=== PATIENT | male | born 1950 | race Caucasian/White ===

== ENCOUNTER 2017-03-10 06:33 | Inpatient (IN) | payer BC, MEDICARE ==
[~2017-03-10] VITALS: Ht 185.4 cm; Wt 116.4 kg
[2017-03-10] MEDS ORDERED: FAMOTIDINE 20MG/2ML IV (PEPCID) IV STA (06:47)
[2017-03-10] MEDS ORDERED: NS IV 1000 ML 1,000 ML IV STA (06:47)
[2017-03-10] MEDS ORDERED: fentaNYL INJECTION 100 MCG/2 ML AMP IVP STA ×2 (06:47→09:13)
--- NOTE | 2017-03-10 06:51 | ED Abdominal Pain ---
General Chief Complaint: Abdominal/GI Problems Stated Complaint: UPPER ABD PAIN Source of Information: Patient Exam Limitations: No Limitations History of Present Illness Time Seen By Provider: 06:39 Initial Comments Here with report of upper abdominal pain that started at about 1 a.m. and was associated with nausea and vomiting. Reports vomiting at least 5 times. Did have one normal bowel movement this morning. Does have history of constipation problems and takes some medicine for that yesterday. Denies blood in his stool or vomit. Denies fever or chills. Timing/Duration: 4-6 Hours Severity/Quality: Moderate, Aching, Cramping Location: Epigastric Radiation: No Radiation Activities at Onset: None Modifying Factors: Improves With Vomiting Associated Symptoms: No Back Pain, No Chest Pain, No Fever/Chills, Nausea/ Vomiting, No Shortness of Air, No Weakness Allergies and Home Medications Allergies Coded Allergies: No Known Drug Allergies (Unverified , 07/19/12) Review of Systems Constitutional: see HPI, No chills, No fever EENTM: No Symptoms Reported Respiratory: No Symptoms Reported Cardiovascular: No Symptoms Reported Gastrointestinal: See HPI, Abdominal Pain, Constipated, Denies Diarrhea, Nausea , Vomiting Genitourinary: No Symptoms Reported Musculoskeletal: no symptoms reported Skin: no symptoms reported Psychiatric/Neurological: No Symptoms Reported All Other Systems Reviewed Negative Unless Noted: Yes Past Lksioqp-Eeqkoz-Xjbpam Hx Patient Social History Alcohol Use: Denies Use Recreational Drug Use: No Smoking Status: Never a Smoker Recent Foreign Travel: No Contact w/Someone Who Travel: No Recent Hopitalizations: No Immunizations Up To Date Date of Pneumonia Vaccine: Apr 16, 2009 Date of Influenza Vaccine: Jun 16, 2012 Surgeries HX Surgeries: Yes Surgeries: Adenoidectomy, Tonsillectomy Respiratory Hx Respiratory Disorders: No Cardiovascular Hx Cardiac Disorders: No Genitourinary Hx Genitourinary Disorders: Yes Genitourinary Disorders: Kidney Stones Gastrointestinal Hx Gastrointestinal Disorders: No Musculoskeletal Hx Musculoskeletal Disorders: No Endocrine Hx Endocrine Disorders: No Reviewed Nursing Assessment Reviewed/Agree w Nursing PMH: Yes Family Medical History Significant Family History: No Pertinent Family Hx Physical Exam Vital Signs VS - Last 72 Hours, by Label 03/10/17 03/10/17 06:40 09:30 Temp 97.7 97.7 Pulse 52 Resp 18 B/P (MAP) 166/83 Pulse Ox 97 O2 Delivery Room Air Capillary Refill : General Appearance: WD/WN, no apparent distress HEENT: PERRL/EOMI, pharynx normal Neck: full range of motion, supple Respiratory: lungs clear, normal breath sounds Cardiovascular: regular rate, rhythm, no murmur Peripheral Pulses: 2+ Dorsalis Pedis (R), 2+ Left Dors-Pedis (L), 2+ Radial Pulses (R), 2+ Radial Pulses (L) Gastrointestinal: non tender, soft Extremities: non-tender, normal inspection Back: normal inspection, no CVA tenderness, no vertebral tenderness Neurologic/Psychiatric: alert, oriented x 3 Skin: normal color, warm/dry Progress/Results/Core Measures Results/Orders Lab Results Laboratory Tests Test 03/10/17 06:45 03/10/17 07:03 Range/Units White Blood Count 12.4 H 4.3-11.0 10^3/uL Red Blood Count 4.99 4.35-5.85 10^6/uL Hemoglobin 15.6 13.3-17.7 G/DL Hematocrit 44 40-54 % Mean Corpuscular Volume 88 80-99 FL Mean Corpuscular Hemoglobin 31 25-34 PG Mean Corpuscular Hemoglobin Concent 36 32-36 G/DL Red Cell Distribution Width 12.7 10.0-14.5 % Platelet Count 244 130-400 10^3/uL Mean Platelet Volume 9.9 7.4-10.4 FL Neutrophils (%) (Auto) 80 H 42-75 % Lymphocytes (%) (Auto) 11 L 12-44 % Monocytes (%) (Auto) 8 0-12 % Eosinophils (%) (Auto) 1 0-10 % Basophils (%) (Auto) 0 0-10 % Neutrophils # (Auto) 10.0 H 1.8-7.8 X 10^3 Lymphocytes # (Auto) 1.3 1.0-4.0 X 10^3 Monocytes # (Auto) 1.0 0.0-1.0 X 10^3 Eosinophils # (Auto) 0.2 0.0-0.3 10^3/uL Basophils # (Auto) 0.0 0.0-0.1 10^3/uL Sodium Level 133 L 135-145 MMOL/L Potassium Level 4.4 3.6-5.0 MMOL/L Chloride Level 102 98-107 MMOL/L Carbon Dioxide Level 21 21-32 MMOL/L Anion Gap 10 5-14 MMOL/L Blood Urea Nitrogen 9 7-18 MG/DL Creatinine 0.94 0.60-1.30 MG/DL Estimat Glomerular Filtration Rate > 60 BUN/Creatinine Ratio 10 Glucose Level 125 H 70-105 MG/DL Calcium Level 9.6 8.5-10.1 MG/DL Magnesium Level 2.0 1.8-2.4 MG/DL Total Bilirubin 1.8 H 0.1-1.0 MG/DL Aspartate Amino Transf (AST/SGOT) 23 5-34 U/L Alanine Aminotransferase (ALT/SGPT) 25 0-55 U/L Alkaline Phosphatase 70 40-136 U/L Total Protein 6.9 6.4-8.2 GM/DL Albumin 4.2 3.2-4.5 GM/DL Amylase Level 41 25-125 U/L Lipase 20 8-78 U/L Urine Color YELLOW Urine Clarity CLEAR Urine pH 7 5-9 Urine Specific [place] 1.010 L 1.016-1.022 Urine Protein NEGATIVE NEGATIVE Urine Glucose (UA) NEGATIVE NEGATIVE Urine Ketones NEGATIVE NEGATIVE Urine Nitrite NEGATIVE NEGATIVE Urine Bilirubin NEGATIVE NEGATIVE Urine Urobilinogen NORMAL NORMAL MG/DL Urine Leukocyte Esterase NEGATIVE NEGATIVE Urine RBC (Auto) 1+ H NEGATIVE Urine RBC NONE /HPF Urine WBC NONE /HPF Urine Squamous Epithelial Cells RARE /HPF Urine Crystals NONE /LPF Urine Bacteria NEGATIVE /HPF Urine Casts NONE /LPF Urine Mucus NEGATIVE /LPF Urine Culture Indicated NO My Orders Orders - KALYANI CORNELL MD Amylase (03/10/17 06:47) Cbc With Automated Diff (03/10/17 06:47) Comprehensive Metabolic Panel (03/10/17 06:47) Lipase (03/10/17 06:47) Magnesium (03/10/17 06:47) Ua Culture If Indicated (03/10/17 06:47) Fentanyl Injection (Sublimaze Injection (03/10/17 06:47) Ondansetron Injection (Zofran Injectio (03/10/17 07:00) Ns Iv 1000 Ml (Sodium Chloride 0.9%) (03/10/17 06:47) Famotidine Injection (Pepcid Injection) (03/10/17 06:47) Saline Lock/Iv-Start (03/10/17 06:47) Us Gallbladder [id number] (03/10/17 07:12) Ct Abdomen/Pelvis W (03/10/17 07:47) Iohexol Injection (Omnipaque 350 Mg/Ml 1 (03/10/17 08:00) Ns (Ivpb) (Sodium Chloride 0.9% Ivpb Bag (03/10/17 08:00) Ondansetron Injection (Zofran Injectio (03/10/17 08:45) Ng Tube Insert & Assessment (03/10/17 09:13) Fentanyl Injection (Sublimaze Injection (03/10/17 09:13) Medications Given in ED Current Medications Medications Dose Ordered Sig/Maikol Route Start Time Stop Time Status Last Admin Dose Admin Iohexol 100 ml ONCE ONCE IV 03/10/17 08:00 03/10/17 08:06 DC 03/10/17 08:10 100 ML Ondansetron HCl 4 mg ONCE ONCE IVP 03/10/17 07:00 03/10/17 07:01 DC 03/10/17 06:56 4 MG Ondansetron HCl 4 mg ONCE ONCE IVP 03/10/17 08:45 03/10/17 08:46 DC 03/10/17 08:34 4 MG Sodium Chloride 80 ml ONCE ONCE IV 03/10/17 08:00 03/10/17 08:06 DC 03/10/17 08:10 80 ML Vital Signs/I&O Vital Sign - Last 12Hours 03/10/17 03/10/17 06:40 09:30 Temp 97.7 97.7 Pulse 52 Resp 18 B/P (MAP) 166/83 Pulse Ox 97 O2 Delivery Room Air Progress Note : Progress Note Seen and evaluated. IV, labs, UA, normal saline 1 L bolus, Zofran 4 mg IV, fentanyl 50 g IV and Pepcid 20 mg IV ordered. Monitor patient. Ultrasound ordered and completed and does not show any significant findings. CT abdomen pelvis ordered as patient is having persistent pain and nausea. Repeat Zofran [address] shows findings concerning for small bowel obstruction. I did discuss the case with Dr. Iverson at 0916. He accepts patient for admission, inpatient status. Consult Dr. Mendez. This was done at 0918. NG tube ordered due to persistent nausea and vomiting. All findings and concerns discussed with patient and family who agree with plan. Diagnostic Imaging Diagonstic Imaging: Ultrasound Plain Films/CT/US/NM/MRI: abdomen Comments [place], [place] NAME: ERIC GOINS [facility] REC#: [id number] PT STATUS: REG ER : 1950 PHYSICIAN: KALYANI CORNELL MD ADMIT DATE: 03/10/17/ER Draft Date of Exam:03/10/17 US GALLBLADDER [id number] PROCEDURE: US Gallbladder. TECHNIQUE: Multiple real-time grayscale images were obtained over the right upper quadrant in various projections. INDICATION: Abdominal pain. Liver parenchyma appears normal. There is a small cyst noted in the midportion of the right lobe measuring approximately 1.8 cm. Bile ducts are not dilated. Common duct is obscured due to bowel gas. The gallbladder appears normal. Gallbladder wall is not thickened. There are no gallstones or pericholecystic edema. The pancreas is not visualized. The right kidney appears normal. There is no ascites. IMPRESSION: 1. Benign-appearing cyst in the right lobe of the liver. 2. Gallbladder and bile ducts appear normal. Dictated on workstation # [id number] Dict: 03/10/17 0759 Trans: 03/10/17 0802 JOSE ANTONIO [id number] Interpreted by: VALDEMAR LITTLE MD Electronically signed by: Reviewed: Reviewed by Me Diagonstic Imaging: CT Plain Films/CT/US/NM/MRI: abdomen, pelvis Comments [place] NAME: ERIC GOINS [facility] REC#: [id number] PT STATUS: REG ER : 1950 PHYSICIAN: KALYANI CORNELL MD ADMIT DATE: 03/10/17/ER Draft Date of Exam:03/10/17 CT ABDOMEN/PELVIS W INDICATION: Epigastric pain, nausea and vomiting CT of the abdomen and pelvis obtained with IV contrast bolus. Visualized portions of the lung bases are clear. There were no pleural fluid collections. There is no free intraperitoneal air. The liver shows a cluster of cysts in the medial segment of the left lobe as well as a smaller cyst in the right lobe. Gallbladder is unremarkable. The spleen, adrenals, and pancreas are normal. Kidneys bilaterally are unremarkable. There is no retroperitoneal mass or adenopathy. Is a trace of free fluid around the liver. There is diffuse dilatation of small bowel loops compatible with small bowel obstruction. There is decompression of distal small bowel. The exact zone of transition is difficult to determine. There is some edema in the mesentery. The colon is decompressed. The appendix appears normal. IMPRESSION: Findings compatible with small bowel obstruction. There is some edema in the mesentery. There is no abscess or abnormal fluid collection. There are multiple hepatic cysts. There is a trace of free fluid around the liver. Dictated on workstation # [id number] Dict: 03/10/17 0834 Trans: 03/10/17 0853 [facility] [id number] Interpreted by: HERVE DAVIS MD Electronically signed by: Reviewed: Reviewed by Me Departure Communication Time/Spoke to Admitting Phy: 09:16 Time/Spoke to Consulting Physi: 09:18 Impression Impression: Primary Impression: Small bowel obstruction Disposition: ADMITTED INPATIENT Condition: Stable Decision to Admit Reason: Admit from ER (General) Decision to Admit/Date: Mar 10, 2017 Time/Decision to Admit Time: 09:16 Departure-Patient Inst. Referrals: ADI IVERSON MD (PCP/Family) Primary Care Physician KALYANI CORNELL MD Mar 10, 2017 06:51
[2017-03-10 06:52] LABS: BASOPHILS % (AUTO) 0 % (0-10); EOSINOPHILS # (AUTO) 0.2 10^3/uL (0.0-0.3); EOSINOPHILS % (AUTO) 1 % (0-10); LYMPHOCYTES # (AUTO) 1.3 X 10^3 (1.0-4.0); LYMPHOCYTES % (AUTO) 11 % (12-44); MEAN CORPUSCULAR HEMOGLOBIN 31 PG (25-34); MEAN CORPUSCULAR HGB CONC 36 G/DL (32-36); MEAN CORPUSCULAR VOLUME 88 FL (80-99); MEAN PLATELET VOLUME 9.9 FL (7.4-10.4); MONOCYTES % (AUTO) 8 % (0-12); NEUTROPHILS % (AUTO) 80 % (42-75); PLATELET COUNT 244 10^3/uL (130-400); RED BLOOD COUNT 4.99 10^6/uL (4.35-5.85); RED CELL DISTRIBUTION WIDTH 12.7 % (10.0-14.5); WHITE BLOOD COUNT 12.4 10^3/uL (4.3-11.0)
[2017-03-10] MEDS ORDERED: ONDANSETRON 4 MG/2 ML (SDV) Z0FRAN IVP ONE ×2 (07:00→08:45)
[2017-03-10 07:11] LABS: ALANINE AMINOTRANSFERASE 25 U/L (0-55); ALBUMIN 4.2 GM/DL (3.2-4.5); AMYLASE 41 U/L (25-125); ANION GAP 10 MMOL/L (5-14); ASPARTATE AMINO TRANSFERASE 23 U/L (5-34); BILIRUBIN,TOTAL 1.8 MG/DL (0.1-1.0); BLOOD UREA NITROGEN 9 MG/DL (7-18); BUN/CREATININE RATIO 10; CALCIUM 9.6 MG/DL (8.5-10.1); CARBON DIOXIDE 21 MMOL/L (21-32); CHLORIDE 102 MMOL/L (98-107); CREATININE SERUM 0.94 MG/DL (0.60-1.30); GFR ESTIMATED > 60; GLUCOSE 125 MG/DL (70-105); LIPASE 20 U/L (8-78); POTASSIUM 4.4 MMOL/L (3.6-5.0); SODIUM 133 MMOL/L (135-145); TOTAL PROTEIN 6.9 GM/DL (6.4-8.2)
[2017-03-10 07:13] LABS: BILIRUBIN,URINE NEGATIVE (NEGATIVE); KETONES,URINE NEGATIVE (NEGATIVE); LEUKOCYTE ESTERASE ,URINE NEGATIVE (NEGATIVE); NITRITE,URINE NEGATIVE (NEGATIVE); PH,URINE 7 (5-9); PROTEIN,URINE NEGATIVE (NEGATIVE); UROBILINOGEN,URINE NORMAL (NORMAL)
[2017-03-10 07:27] LABS: SQUAMOUS EPITHELIAL CELL,UR RARE /HPF
[2017-03-10] MEDS ORDERED: IOHEXOL 350 MG/ML 100 ML (OMNIPAQUE 350) VIAL IV ONE (08:00)
[2017-03-10] MEDS ORDERED: NS 100 ML (IVPB) BAG IV ONE (08:00)
--- NOTE | 2017-03-10 08:03 | Diagnostic Imaging Report ---
PROCEDURE: US Gallbladder. TECHNIQUE: Multiple real-time grayscale images were obtained over the right upper quadrant in various projections. INDICATION: Abdominal pain. Liver parenchyma appears normal. There is a small cyst noted in the midportion of the right lobe measuring approximately 1.8 cm. Bile ducts are not dilated. Common duct is obscured due to bowel gas. The gallbladder appears normal. Gallbladder wall is not thickened. There are no gallstones or pericholecystic edema. The pancreas is not visualized. The right kidney appears normal. There is no ascites. IMPRESSION: 1. Benign-appearing cyst in the right lobe of the liver. 2. Gallbladder and bile ducts appear normal. Dictated by: Dictated on workstation # [id number]
--- NOTE | 2017-03-10 08:54 | Diagnostic Imaging Report ---
INDICATION: Epigastric pain, nausea and vomiting CT of the abdomen and pelvis obtained with IV contrast bolus. Visualized portions of the lung bases are clear. There were no pleural fluid collections. There is no free intraperitoneal air. The liver shows a cluster of cysts in the medial segment of the left lobe as well as a smaller cyst in the right lobe. Gallbladder is unremarkable. The spleen, adrenals, and pancreas are normal. Kidneys bilaterally are unremarkable. There is no retroperitoneal mass or adenopathy. Is a trace of free fluid around the liver. There is diffuse dilatation of small bowel loops compatible with small bowel obstruction. There is decompression of distal small bowel. The exact zone of transition is difficult to determine. There is some edema in the mesentery. The colon is decompressed. The appendix appears normal. IMPRESSION: Findings compatible with small bowel obstruction. There is some edema in the mesentery. There is no abscess or abnormal fluid collection. There are multiple hepatic cysts. There is a trace of free fluid around the liver. Dictated by: Dictated on workstation # [id number]
[2017-03-10] MEDS ORDERED: CATHETER FLUSH 10 ML SYR IV PRN (11:30)
[2017-03-10] MEDS ORDERED: fentaNYL INJECTION 100 MCG/2 ML AMP IV PRN (11:30)
[2017-03-10 12:00] VITALS: BP 164/74
[2017-03-10] MEDS: NS IV 1000 ML 1,000 ML IV SCH ×2 (12:20→21:55)
--- NOTE | 2017-03-10 13:15 | CONSULTATION REPORT ---
DATE OF ADMISSION: 03/10/2017 DATE OF CONSULTATION 03/10/2017: ATTENDING PRIMARY CARE PHYSICIAN: Dr. Iverson. Mr. Steve Dye is a 66-year-old male who states that he developed upper abdominal pain early this morning, which was associated with nausea and vomiting. He states that he did have a bowel movement this morning as well. He does have a history of constipation and had had some issues with this before. He does not report any hematemesis or coffee-ground emesis. He also does not report any red blood per rectum or any dark tarry stools. He also does not report having these type of symptoms before in the past as well. An ultrasound was performed, which did not show any gallstones. He also had a CT scan, which did show dilated loop of small bowel, as well as some mild thickening of a segment of small bowel consistent with an ileus versus a partial small bowel obstruction. PAST MEDICAL HISTORY: Nephrolithiasis. PAST SURGERIES: Tonsillectomy. ALLERGIES: No known drug allergies. MEDICATIONS: None. SOCIAL HISTORY: Negative smoke. Negative alcohol. VITAL SIGNS: Temperature 97.7, blood pressure 166/83, pulse 52, respirations 18, pulse oximetry 97% on room air. REVIEW OF SYSTEMS: Well-nourished male, currently in no acute distress. He is not experiencing any shortness of breath or difficulty breathing. No chest pain, palpitations, diaphoresis. Abdominal distention, as well as of crampy upper abdominal pain with several episodes of nausea, vomiting, no hematemesis, no coffee-ground emesis. He have a bowel movement this morning. No red blood per rectum. No dark tarry stools. No fever, chills, no recent inadvertent weight loss. All other review of systems negative. PHYSICAL EXAMINATION: CHEST: Clear, good breath sounds bilaterally. HEART: Regular. No murmurs. EXTREMITIES: No lower extremity edema. Negative Homans sign. HEENT: No scleral icterus. No cervical lymphadenopathy. ABDOMEN: Slightly distended with no hernias identified. There is also mild discomfort upon palpation. No peritoneal signs. SKIN: Warm and dry. LABS: WBC 12.4, hemoglobin 15.6, hematocrit 44, platelets 244, total bilirubin 1.8, AST 23, ALT 25, alkaline phosphatase 70. ASSESSMENT AND PLAN: 66-year-old male with nausea and vomiting as well as upper abdominal pain. There was mild amount of edema noted on the small bowel as well as dilated loops of small bowel, which may indicate ileus versus a partial small bowel obstruction secondary to nonspecific inflammation due to bacterial overgrowth. We will continue with conservative management with IV hydration, antibiotics, as well as bowel rest. Job ID: [id number] Dictated Date: 03/10/2017 10:43:40 Director Of Human Resources Date: 03/10/2017 13:07:04/jeovany
[2017-03-10] MEDS ORDERED: DOXY100T2 PO (13:17)
[2017-03-10] MEDS ORDERED: TADA5TAB2 PO (13:17)
[2017-03-10] MEDS ORDERED: BENA20TA2 PO (13:17)
[2017-03-10] MEDS ORDERED: BUPR150T7 PO (13:17)
[2017-03-10] MEDS ORDERED: DOCU100C37 PO (13:17)
[2017-03-10] MEDS: LEVOFLOXACIN 500 MG/100 ML IV 100 ML IV SCH (13:46)
[2017-03-10 15:41] VITALS: BP 167/83
--- NOTE | 2017-03-10 17:03 | History & Physical-Hospitalist ---
HPI History of Present Illness: HPI/Chief Complaint Mr. Dye is a 66-year-old white male who awoke from sleep around 130 a.m. this morning with epigastric abdominal pain. It was followed by nausea and vomiting. He denied coffee-ground emesis or bright red blood. Intractable vomiting persisted causing his present to the emergency room. He denied chills or fever. He reports he is prone to constipation but had a stool was not hard this morning. He has no significant past surgical history and has no past history of bowel obstruction. He underwent abdominal sonography that was unremarkable in the emergency room. This was followed by a CT scan of the abdomen and pelvis which revealed findings concerning for underlying small bowel obstruction. Patient states that he had overdone it moving 2 daughters in the heat over the weekend. He reports he had been feeling well until waking up this morning however and had no abdominal symptoms yesterday. He denies chills fever or night sweats. Date Seen 03/10/17 Time Seen by Provider: 16:00 Attending Physician Adi Summers MD PCP Adi Summers MD Referring Physician Date of Admission Mar 10, 2017 at 09:22 Home Medications & Allergies Home Medications Reviewed patient Home Medication Reconciliation Form Allergies Allergies Coded Allergies No Known Drug Allergies ([id number]/4/12) Past Hdoqpax-Zqxiav-Yqsslu Hx Patient Social History Alcohol Use: Denies Use Recreational Drug Use: No Smoking Status: Never a Smoker Physical Abuse Screen: No Sexual Abuse: No Recent Foreign Travel: No Contact w/other who traveled: No Recent Hopitalizations: No Recent Infectious Disease Expo: No Immunizations Up To Date Date of Pneumonia Vaccine: Apr 16, 2009 Date of Influenza Vaccine: Jun 16, 2012 Seasonal Allergies Seasonal Allergies: No Surgeries HX Surgeries: Yes Surgeries: Adenoidectomy, Tonsillectomy Respiratory Hx Respiratory Disorders: No Cardiovascular Hx Cardiovascular Disorders: No Genitourinary Hx Genitourinary Disorders: Yes Genitourinary Disorders: Kidney Stones Gastrointestinal Hx Gastrointestinal Disorders: No Musculoskeletal Hx Musculoskeletal Disorders: No Endocrine Hx Endocrine Disorders: No Reviewed Nursing Assessment Reviewed/Agree w Nursing PMH: Yes Family Medical History Significant Family History: No Pertinent Family Hx Review of Systems Constitutional: No chills, No diaphoresis, No dizziness, No fever, No malaise, No weakness, No weight gain, No weight loss Respiratory: no symptoms reported, see HPI Cardiovascular: no symptoms reported, see HPI Gastrointestinal: see HPI Physical Exam Physical Exam Vital Signs Vital Sign - Last 12Hours 03/10/17 06:40 Temp 97.7 Pulse 52 Resp 18 B/P (MAP) 166/83 Pulse Ox 97 O2 Delivery Room Air Capillary Refill : Less Than 3 Seconds General Appearance: Mild Distress Neck: Full Range of Motion, Normal Inspection Respiratory: Chest Non Tender, Lungs Clear, Normal Breath Sounds, No Accessory Muscle Use, No Respiratory Distress Cardiovascular: Regular Rate, Rhythm, No Edema, No Gallop, No JVD, No Murmur, Normal Peripheral Pulses Gastrointestinal: Other (Mild epigastric andUmbilical discomfort to palpation. Bowel sounds are absent no mass or organomegaly is appreciated. Mild abdominal distention) Extremity: Normal Capillary Refill, Normal Inspection, Normal Range of Motion, Non Tender, No Calf Tenderness, No Pedal Edema Skin: Normal Color, Damp Results Results/Procedures Lab Laboratory Tests 03/10/17 06:45 Assessment/Plan Admission Diagnosis 1. Ileus with or without ischemia aggravated by dehydration versus caruncle small bowel obstruction. We'll continue NG tube decompression and monitoring. Antibiotics have been initiated as well. Dr. VALLADARES's help greatly appreciated. 2. History of hypertension we'll be holding oral antihypertensive medication. Clinical Quality Measures DVT/VTE Risk/Contraindication: Risk Factor Score Per Nursin RFS Level Per Nursing on Admit: 2=Moderate ADI SUMMERS MD Mar 10, 2017 17:03
[2017-03-10 19:07] VITALS: BP 169/78
[2017-03-10] MEDS: ACETAMINOPHEN 325 MG TABLET/CAPLET (TYLENOL) PO PRN (19:59)
[2017-03-11] VITALS: BP 175/77
[2017-03-11 04:22] VITALS: BP 176/78
[2017-03-11] MEDS: NS IV 1000 ML 1,000 ML IV SCH (05:39)
--- NOTE | 2017-03-11 07:19 | Progress Note-Hospitalist ---
Subjective HPI/CC On Admission Date Seen by Provider: Mar 11, 2017 Time Seen by Provider: 07:00 Mr. Dye is a 66-year-old white male who awoke from sleep around 130 a.m. this morning with epigastric abdominal pain. It was followed by nausea and vomiting. He denied coffee-ground emesis or bright red blood. Intractable vomiting persisted causing his present to the emergency room. He denied chills or fever. He reports he is prone to constipation but had a stool was not hard this morning. He has no significant past surgical history and has no past history of bowel obstruction. He underwent abdominal sonography that was unremarkable in the emergency room. This was followed by a CT scan of the abdomen and pelvis which revealed findings concerning for underlying small bowel obstruction. Patient states that he had overdone it moving 2 daughters in the heat over the weekend. He reports he had been feeling well until waking up this morning however and had no abdominal symptoms yesterday. He denies chills fever or night sweats. Subjective/Events-last exam This Morning patient's noting a little more epigastric discomfort without nausea or vomiting. He denied chills or feeling feverish but did have some sweating last night. MAXIMUM TEMPERATURE 100.3 Objective Exam Vital Signs Vital Sign - Last 12Hours 03/10/17 06:40 Temp 97.7 Pulse 52 Resp 18 B/P (MAP) 166/83 Pulse Ox 97 O2 Delivery Room Air Capillary Refill : Less Than 3 Seconds General Appearance: No Apparent Distress, WD/WN Respiratory: Chest Non Tender, Lungs Clear, Normal Breath Sounds, No Accessory Muscle Use, No Respiratory Distress Cardiovascular: Regular Rate, Rhythm, No Edema, No Gallop, No JVD, No Murmur, Normal Peripheral Pulses Gastrointestinal: Other (I'll sounds are noted with no increase in mild abdominal distention. The abdomen is soft there is mild epigastric discomfort without rebound or guarding no masses or organomegaly appreciated.) Assessment/Plan Assessment and Plan Assess & Plan/Chief Complaint 1. Small bowel obstruction versus ileus ischemia with concerns for bacterial overgrowth and secondary infection necessitate continued broad-spectrum antibiotic coverage. The patient is only had roughly 200 mL of NG output over the last 18+ hours and does have bowel sounds's morning which are encouraging. Defer NG tube management Dr. VALLADARES no flatus or stool as of yet. ADI SUMMERS MD Mar 11, 2017 07:19
[2017-03-11 08:00] VITALS: BP 170/83
--- NOTE | 2017-03-11 08:33 | Diagnostic Imaging Report ---
INDICATION: Fever and small bowel obstruction. PA and lateral views of the chest are obtained. There is no previous study available at this time for comparison. FINDINGS: Heart size and pulmonary vascularity are within normal limits. There is no pneumothorax or consolidation. No significant pleural fluid is identified. There is extensive gaseous distention of small bowel seen in the upper abdomen with air-fluid levels indicating possible obstruction. IMPRESSION: Abnormal bowel gas pattern without acute abnormality seen in the chest. Nasogastric tube passes into the stomach with tip in the left upper quadrant. Dictated by: Dictated on workstation # [id number]
[2017-03-11 09:44] LABS: MEAN PLATELET VOLUME 10.1 FL (7.4-10.4); RED BLOOD COUNT 4.94 10^6/uL (4.35-5.85); RED CELL DISTRIBUTION WIDTH 12.8 % (10.0-14.5); WHITE BLOOD COUNT 16.1 10^3/uL (4.3-11.0)
[2017-03-11] MEDS: D5 NS 1000 ML IV SOLUTION 1,000 ML IV SCH ×3 (11:18→23:59)
[2017-03-11] MEDS: LEVOFLOXACIN 500 MG/100 ML IV 100 ML IV SCH (11:18)
[2017-03-11 12:00] VITALS: BP 179/78
--- NOTE | 2017-03-11 15:54 | Progress Note (SOAP) ---
Subjective Date Seen by Provider: Mar 11, 2017 Time Seen by Provider: 15:45 Subjective/Events-last exam doing ok. no BM or flatus yet. mild abd pain. Objective Exam Vital Signs Date Time Temp Pulse Resp B/P (MAP) Pulse Ox O2 Delivery O2 Flow Rate FiO2 03/11/17 12:00 98.6 60 20 179/78 98 Room Air 03/11/17 08:00 98.0 57 16 170/83 98 Room Air 03/11/17 04:22 99.5 56 18 176/78 99 Room Air 03/11/17 00:00 99.0 59 19 175/77 98 Room Air 03/10/17 20:50 99.0 03/10/17 19:59 100.3 03/10/17 19:07 100.3 57 19 169/78 97 Room Air I & O 03/11/17 07:00 Intake Total 2000 ml Output Total 900 ml Balance 1100 ml Capillary Refill : Less Than 3 Seconds General Appearance: No Apparent Distress HEENT: PERRL/EOMI Neck: Full Range of Motion Respiratory: Chest Non Tender, Lungs Clear, Normal Breath Sounds Cardiovascular: Regular Rate, Rhythm Gastrointestinal: normal bowel sounds, soft Extremity: Normal Capillary Refill Neurologic/Psychiatric: Alert, Oriented x3 Skin: Normal Color Lymphatic: No Adenopathy Results Lab Laboratory Tests 03/11/17 09:35: White Blood Count 16.1H, Red Blood Count 4.94, Hemoglobin 15.6, Hematocrit 44, Mean Corpuscular Volume 89, Mean Corpuscular Hemoglobin 32, Mean Corpuscular Hemoglobin Concent 36, Red Cell Distribution Width 12.8, Platelet Count 222, Mean Platelet Volume 10.1 Assessment/Plan Assessment/Plan Assess & Plan/Chief Complaint enteritis. continue bowel rest. add flagyl. await normalization WBC and bowel fxn then start clears. Clinical Quality Measures DVT/VTE Risk/Contraindication: Risk Factor Score Per Nursin RFS Level Per Nursing on Admit: 2=Moderate ISIDRO VALLADARES MD Mar 11, 2017 3:54 pm
[2017-03-11 16:19] VITALS: BP 181/86
[2017-03-11] MEDS: metroNIDAZOLE 500MG/100ML IVPB 100 ML IV SCH (16:31)
[2017-03-11] MEDS ORDERED: amLODIPine 5 MG (NORVASC) TAB PO NR (17:00)
[2017-03-11] MEDS ORDERED: DOCUSATE SODIUM 100 MG (COLACE) CAP PO PRN (17:00)
[2017-03-11] MEDS ORDERED: BENAZEPRIL 20 MG (LOTENSIN) TAB ONE (17:06)
[2017-03-11] MEDS: BENAZEPRIL 20 MG (LOTENSIN) TAB PO SCH (17:13)
[2017-03-11] MEDS: ACETAMINOPHEN 325 MG TABLET/CAPLET (TYLENOL) PO PRN (19:27)
[2017-03-11] MEDS: CIPROFLOXACIN IV 400MG/200ML 200 ML IV SCH (20:13)
[2017-03-11] MEDS: ONDANSETRON 4 MG/2 ML (SDV) Z0FRAN IV PRN (20:16)
[2017-03-11 20:20] VITALS: BP 186/92
[2017-03-12] VITALS: BP 183/74
[2017-03-12] MEDS ORDERED: hydrALAZINE (APRESOLINE) 25 MG TAB PO ONE (00:15)
[2017-03-12] MEDS: ONDANSETRON 4 MG/2 ML (SDV) Z0FRAN IV PRN (00:29)
[2017-03-12] MEDS: metroNIDAZOLE 500MG/100ML IVPB 100 ML IV SCH (04:07)
[2017-03-12 06:26] LABS: BASOPHILS % (AUTO) 0 % (0-10); EOSINOPHILS % (AUTO) 0 % (0-10); LYMPHOCYTES # (AUTO) 1.1 X 10^3 (1.0-4.0); LYMPHOCYTES % (AUTO) 6 % (12-44); MEAN CORPUSCULAR HEMOGLOBIN 31 PG (25-34); MEAN CORPUSCULAR HGB CONC 36 G/DL (32-36); MEAN CORPUSCULAR VOLUME 88 FL (80-99); MEAN PLATELET VOLUME 10.7 FL (7.4-10.4); MONOCYTES % (AUTO) 11 % (0-12); NEUTROPHILS # (AUTO) 15.5 X 10^3 (1.8-7.8); NEUTROPHILS % (AUTO) 83 % (42-75); PLATELET COUNT 240 10^3/uL (130-400); RED BLOOD COUNT 5.22 10^6/uL (4.35-5.85); RED CELL DISTRIBUTION WIDTH 12.8 % (10.0-14.5); WHITE BLOOD COUNT 18.6 10^3/uL (4.3-11.0)
[2017-03-12 06:43] LABS: ALANINE AMINOTRANSFERASE 25 U/L (0-55); ALBUMIN 3.8 GM/DL (3.2-4.5); ANION GAP 10 MMOL/L (5-14); ASPARTATE AMINO TRANSFERASE 39 U/L (5-34); BILIRUBIN,TOTAL 1.8 MG/DL (0.1-1.0); BLOOD UREA NITROGEN 11 MG/DL (7-18); BUN/CREATININE RATIO 14; CALCIUM 8.6 MG/DL (8.5-10.1); CARBON DIOXIDE 21 MMOL/L (21-32); CHLORIDE 102 MMOL/L (98-107); CREATININE SERUM 0.81 MG/DL (0.60-1.30); GFR ESTIMATED > 60; GLUCOSE 144 MG/DL (70-105); POTASSIUM 3.6 MMOL/L (3.6-5.0); SODIUM 133 MMOL/L (135-145); TOTAL PROTEIN 6.5 GM/DL (6.4-8.2)
[2017-03-12 07:25] VITALS: BP 169/82
[2017-03-12] MEDS: buPROPion SR 150 MG (WELLBUTRIN SR) TAB PO SCH (08:15)
[2017-03-12] MEDS: BENAZEPRIL 20 MG (LOTENSIN) TAB PO SCH (08:15)
[2017-03-12] MEDS: CIPROFLOXACIN IV 400MG/200ML 200 ML IV SCH (08:15)
[2017-03-12] MEDS: D5 NS 1000 ML IV SOLUTION 1,000 ML IV SCH (08:15)
[2017-03-12] MEDS: hydrALAZINE (APRESOLINE) 25 MG TAB PO SCH ×3 (08:16→21:35)
[2017-03-12] MEDS ORDERED: NON-FORMULARY MEDICATION 1 EA EA (Tadalafil (Cialis) 5 MG) PO SCH (09:00)
--- NOTE | 2017-03-12 13:00 | Progress Note-Hospitalist ---
Subjective HPI/CC On Admission Date Seen by Provider: Mar 12, 2017 Time Seen by Provider: 12:15 Mr. Dye is a 66-year-old white male who awoke from sleep around 130 a.m. this morning with epigastric abdominal pain. It was followed by nausea and vomiting. He denied coffee-ground emesis or bright red blood. Intractable vomiting persisted causing his present to the emergency room. He denied chills or fever. He reports he is prone to constipation but had a stool was not hard this morning. He has no significant past surgical history and has no past history of bowel obstruction. He underwent abdominal sonography that was unremarkable in the emergency room. This was followed by a CT scan of the abdomen and pelvis which revealed findings concerning for underlying small bowel obstruction. Patient states that he had overdone it moving 2 daughters in the heat over the weekend. He reports he had been feeling well until waking up this morning however and had no abdominal symptoms yesterday. He denies chills fever or night sweats. Subjective/Events-last exam Mr. Dye reports she's past small amount of gas but he still has significant distention. He had some nausea last night without vomiting. Reportedly his NG tube came out yesterday afternoon. His bowels have not moved. He denies chills or fever. MAXIMUM TEMPERATURE 100.5 Objective Exam Vital Signs Vital Sign - Last 12Hours 03/10/17 06:40 Temp 97.7 Pulse 52 Resp 18 B/P (MAP) 166/83 Pulse Ox 97 O2 Delivery Room Air Capillary Refill : Less Than 3 Seconds General Appearance: No Apparent Distress, WD/WN Respiratory: Chest Non Tender, Lungs Clear, Normal Breath Sounds, No Accessory Muscle Use, No Respiratory Distress Cardiovascular: Regular Rate, Rhythm, No Edema, No Gallop, No JVD, No Murmur, Normal Peripheral Pulses Gastrointestinal: No Organomegaly, No Pulsatile Mass, Non Tender, Soft ( relatively), Distended (unchanged from yesterday), Other (bowel sounds are positive.) Results/Procedures Lab Laboratory Tests 03/12/17 05:57 Assessment/Plan Assessment and Plan Assess & Plan/Chief Complaint 1. Small bowel obstruction versus ileus ischemia with concerns for bacterial overgrowth and secondary infection necessitate continued broad-spectrum antibiotic coverage. patient is scheduled for CT abdomen and pelvis later today. His white count was higher this morning and he still having low-grade temperature with no evidence for any significant resolution of abdominal distention. It is encouraging however that is not having abdominal pain and his NG tube has been out for 24 hours without vomiting. I suspect little if any improvement will be noted on CT scan however. We'll await test results. Discussed that if there is progression of fever or leukocytosis or CT evidence for worsening obstruction with no contrast getting through exploratory laparotomy would become necessary.past him levels the lower limbs and normal we will add 20 mEq per liter of IV fluid. We'll repeat a.m. labs ADI SUMMERS MD Mar 12, 2017 13:00
[2017-03-12] MEDS ORDERED: D5 NS W/KCL 20 MEQ/L 1,000 ML IV SCH (13:30)
[2017-03-12] MEDS ORDERED: CATHETER FLUSH 10 ML SYR IV PRN (13:45)
[2017-03-12] MEDS ORDERED: NS 100 ML (IVPB) BAG IV ONE (13:45)
[2017-03-12] MEDS ORDERED: IOHEXOL 350 MG/ML 100 ML (OMNIPAQUE 350) VIAL IV ONE (13:45)
--- NOTE | 2017-03-12 14:10 | Diagnostic Imaging Report ---
PROCEDURE: CT abdomen and pelvis with contrast. TECHNIQUE: Multiple contiguous axial images were obtained through the abdomen and pelvis after administration of intravenous contrast. INDICATION: Increasing abdominal pain. History of small bowel obstruction. COMPARISON: 03/10/2017. FINDINGS: The stomach is distended and fluid filled. There are multiple dilated loops of small bowel with air-fluid levels throughout. The ileum is decompressed consistent with high-grade mid small bowel obstruction. There is no evidence of pneumatosis. There is free fluid along the colic gutters, more dominantly on the right and surrounding the liver. This has developed since the previous CT scan. The colon shows very little stool or gas. No evidence of diverticulitis. The liver again shows multiple cysts. Gallbladder remain normal as are the bile ducts. Pancreas and spleen are normal. The adrenal glands are normal. Kidneys are normal. There is normal enhancement of the abdominal organs and vessels following IV contrast. No abnormal enhancement is seen of the bowel wall. Bladder is mildly distended. Prostate is not enlarged. IMPRESSION: 1. Findings are again consistent with small bowel obstruction in the distal jejunum or proximal ileum. There has been slight increase in distention of the stomach as well as small bowel loops. 2. There is moderate ascites now noted in the right colic gutter and surrounding the liver. This is a new finding since previous exam. No free air is demonstrated at this time. Dictated by: Dictated on workstation # [id number]
--- NOTE | 2017-03-12 15:06 | Progress Note (SOAP) ---
Subjective Date Seen by Provider: Mar 12, 2017 Time Seen by Provider: 14:45 Subjective/Events-last exam doing ok. repeat ct with oral and IV contrast consistent with SBO. patient asymptomatic with no abdominal pain nor N/V. mild low grade nocturnal fevers but afebrile during day. Objective Exam Vital Signs Date Time Temp Pulse Resp B/P (MAP) Pulse Ox O2 Delivery O2 Flow Rate FiO2 03/12/17 07:25 98.6 71 20 169/82 97 Room Air 03/12/17 00:00 97.8 73 18 183/74 95 Room Air 03/11/17 20:25 98.8 03/11/17 20:20 100.5 80 20 186/92 97 Room Air 03/11/17 19:27 100.5 03/11/17 16:19 98.5 59 20 181/86 96 Room Air I & O 03/12/17 07:00 Intake Total 3300 ml Output Total 1450 ml Balance 1850 ml Capillary Refill : Less Than 3 Seconds General Appearance: No Apparent Distress HEENT: PERRL/EOMI Neck: Full Range of Motion Respiratory: Chest Non Tender, Lungs Clear, Normal Breath Sounds Cardiovascular: Regular Rate, Rhythm Gastrointestinal: non tender, soft, distended Extremity: Normal Capillary Refill Neurologic/Psychiatric: Alert, Oriented x3 Skin: Normal Color Lymphatic: No Adenopathy Results Lab Laboratory Tests 03/12/17 05:57: White Blood Count 18.6H, Red Blood Count 5.22, Hemoglobin 16.4, Hematocrit 46, Mean Corpuscular Volume 88, Mean Corpuscular Hemoglobin 31, Mean Corpuscular Hemoglobin Concent 36, Red Cell Distribution Width 12.8, Platelet Count 240, Mean Platelet Volume 10.7H, Neutrophils (%) (Auto) 83H, Lymphocytes (%) (Auto) 6L, Monocytes (%) (Auto) 11, Eosinophils (%) (Auto) 0, Basophils (%) (Auto) 0, Neutrophils # (Auto) 15.5H, Lymphocytes # (Auto) 1.1, Monocytes # (Auto) 2.0H, Eosinophils # (Auto) 0.0, Basophils # (Auto) 0.0, Sodium Level 133L, Potassium Level 3.6, Chloride Level 102, Carbon Dioxide Level 21, Anion Gap 10, Blood Urea Nitrogen 11, Creatinine 0.81, Estimat Glomerular Filtration Rate > 60, BUN/ Creatinine Ratio 14, Glucose Level 144H, Calcium Level 8.6, Total Bilirubin 1.8H , Aspartate Amino Transf (AST/SGOT) 39H, Alanine Aminotransferase (ALT/SGPT) 25 , Alkaline Phosphatase 55, Total Protein 6.5, Albumin 3.8 Assessment/Plan Assessment/Plan Assess & Plan/Chief Complaint enteritis with small bowel obstruction. continue conservative management with bowel rest and clears. switch to zosyn to cover all enteric bacteria. await normalization WBC and bowel fxn then advance diet. Clinical Quality Measures DVT/VTE Risk/Contraindication: Risk Factor Score Per Nursin RFS Level Per Nursing on Admit: 2=Moderate ISIDRO VALLADARES MD Mar 12, 2017 15:06
[2017-03-12] MEDS ORDERED: PIPERACILLIN SODIUM/TAZOBACTAM 4.5 GM in NS (IVPB) 100 ML IV NR (16:34)
[2017-03-12 16:38] VITALS: BP 174/95
[2017-03-12] MEDS: D5 NS W/KCL 20 MEQ/L 1,000 ML IV SCH (16:41)
[2017-03-12] MEDS ORDERED: diphenhydrAMINE 50 MG/ML INJ (BENADRYL) ONE (17:25)
[2017-03-12] MEDS ORDERED: diphenhydrAMINE 50 MG/ML INJ (BENADRYL) IM STA (17:35)
[2017-03-12] MEDS ORDERED: PIPERACILLIN SODIUM/TAZOBACTAM 4.5 GM in NS (IVPB) 100 ML IV SCH (22:00)
[2017-03-13] VITALS (13 sets, daily range): BP systolic 140–179; BP diastolic 67–100
[2017-03-13] MEDS: D5 NS W/KCL 20 MEQ/L 1,000 ML IV SCH ×3 (00:43→16:55)
[2017-03-13] MEDS: meTOprolol 5 MG/5 ML (LOPRESSOR) VIAL IV PRN ×4 (00:44→20:52)
[2017-03-13 05:41] LABS: BASOPHILS % (AUTO) 0 % (0-10); EOSINOPHILS # (AUTO) 0.1 10^3/uL (0.0-0.3); EOSINOPHILS % (AUTO) 0 % (0-10); LYMPHOCYTES # (AUTO) 1.3 X 10^3 (1.0-4.0); LYMPHOCYTES % (AUTO) 9 % (12-44); MEAN CORPUSCULAR HEMOGLOBIN 32 PG (25-34); MEAN CORPUSCULAR HGB CONC 36 G/DL (32-36); MEAN CORPUSCULAR VOLUME 88 FL (80-99); MEAN PLATELET VOLUME 10.3 FL (7.4-10.4); MONOCYTES # (AUTO) 1.9 X 10^3 (0.0-1.0); MONOCYTES % (AUTO) 12 % (0-12); NEUTROPHILS # (AUTO) 12.3 X 10^3 (1.8-7.8); NEUTROPHILS % (AUTO) 79 % (42-75); PLATELET COUNT 227 10^3/uL (130-400); RED BLOOD COUNT 4.92 10^6/uL (4.35-5.85); RED CELL DISTRIBUTION WIDTH 12.7 % (10.0-14.5); WHITE BLOOD COUNT 15.6 10^3/uL (4.3-11.0)
[2017-03-13 06:04] LABS: ALANINE AMINOTRANSFERASE 27 U/L (0-55); ALBUMIN 3.6 GM/DL (3.2-4.5); ANION GAP 13 MMOL/L (5-14); ASPARTATE AMINO TRANSFERASE 37 U/L (5-34); BILIRUBIN,TOTAL 1.9 MG/DL (0.1-1.0); BLOOD UREA NITROGEN 9 MG/DL (7-18); BUN/CREATININE RATIO 12; CALCIUM 8.4 MG/DL (8.5-10.1); CARBON DIOXIDE 20 MMOL/L (21-32); CHLORIDE 98 MMOL/L (98-107); CREATININE SERUM 0.76 MG/DL (0.60-1.30); GFR ESTIMATED > 60; GLUCOSE 136 MG/DL (70-105); POTASSIUM 3.4 MMOL/L (3.6-5.0); SODIUM 131 MMOL/L (135-145)
[2017-03-13] MEDS: NS IV 500 ML 500 ML IV SCH (08:32)
[2017-03-13] MEDS: BENAZEPRIL 20 MG (LOTENSIN) TAB PO SCH (08:32)
[2017-03-13] MEDS: POTASSIUM CL 10MEQ/50ML IVPB 50 ML IV SCH ×3 (08:32→14:35)
[2017-03-13] MEDS: buPROPion SR 150 MG (WELLBUTRIN SR) TAB PO SCH (08:32)
[2017-03-13] MEDS: hydrALAZINE (APRESOLINE) 25 MG TAB PO SCH ×3 (08:32→20:52)
--- NOTE | 2017-03-13 09:12 | Progress Note-Pre Operative ---
Pre-Operative Progress Note H&P Reviewed The H&P was reviewed, patient examined and no changes noted. Date Seen by Provider: Mar 13, 2017 Time Seen by Provider: 08:40 Date H&P Reviewed: Mar 13, 2017 Time H&P Reviewed: 09:12 Pre-Operative Diagnosis: Small bowel obstruction TRUPTI COLEMAN MD Mar 13, 2017 09:12
--- NOTE | 2017-03-13 09:12 | Progress Note (SOAP) ---
Subjective Date Seen by Provider: Mar 13, 2017 Time Seen by Provider: 08:35 Subjective/Events-last exam Increased abdominal pain, distension and vomiting. CT shows ascites, concerning for strangulated small bowel obstruction. Review of Systems General: Malaise HEENT: No Head Aches, No Eye Pain, No Ear Pain, No Dysphasia, No Sinus Congestion, No Post Nasal Drip, No Sore Throat Pulmonary: No Dyspnea, No Cough, No Pleuritic Chest Pain Cardiovascular: Palpitations Gastrointestinal: Abdominal Pain, Constipation, Nausea, Vomiting Genitourinary: No Dysuria, No Frequency, No Incontinence, No Hematuria, No Retention Musculoskeletal: No: arm pain, back pain, foot pain, hand pain, leg pain, neck pain, other, shoulder pain Neurological: No: Change in speech, Confusion, Incoordination, Numbness, Other , Seizures, Weakness Objective Exam Vital Signs Date Time Temp Pulse Resp B/P (MAP) Pulse Ox O2 Delivery O2 Flow Rate FiO2 03/13/17 08:00 99.6 69 24 158/80 96 Room Air 03/13/17 07:00 63 03/13/17 05:00 99.8 70 19 144/67 94 Room Air 03/13/17 01:00 68 03/13/17 00:02 78 03/13/17 00:00 98.1 75 18 168/80 93 Room Air 03/12/17 16:38 98.1 72 20 174/95 94 Room Air I & O 03/13/17 07:00 Intake Total 4250 ml Output Total 4100 ml Balance 150 ml Capillary Refill : Less Than 3 Seconds General Appearance: Mild Distress HEENT: Normal ENT Inspection Neck: Normal Inspection Respiratory: Lungs Clear Cardiovascular: Regular Rate, Rhythm Gastrointestinal: distended, tenderness Extremity: Normal Inspection Neurologic/Psychiatric: Alert, Oriented x3 Skin: Warm/Dry Other comments Tenderness over the epigastric region. Results Lab Laboratory Tests 03/13/17 05:22: White Blood Count 15.6H, Red Blood Count 4.92, Hemoglobin 15.5, Hematocrit 43, Mean Corpuscular Volume 88, Mean Corpuscular Hemoglobin 32, Mean Corpuscular Hemoglobin Concent 36, Red Cell Distribution Width 12.7, Platelet Count 227, Mean Platelet Volume 10.3, Neutrophils (%) (Auto) 79H, Lymphocytes (%) (Auto) 9L , Monocytes (%) (Auto) 12, Eosinophils (%) (Auto) 0, Basophils (%) (Auto) 0, Neutrophils # (Auto) 12.3H, Lymphocytes # (Auto) 1.3, Monocytes # (Auto) 1.9H, Eosinophils # (Auto) 0.1, Basophils # (Auto) 0.0, Sodium Level 131L, Potassium Level 3.4L, Chloride Level 98, Carbon Dioxide Level 20L, Anion Gap 13, Blood Urea Nitrogen 9, Creatinine 0.76, Estimat Glomerular Filtration Rate > 60, BUN/ Creatinine Ratio 12, Glucose Level 136H, Calcium Level 8.4L, Total Bilirubin 1.9H, Aspartate Amino Transf (AST/SGOT) 37H, Alanine Aminotransferase (ALT/SGPT ) 27, Alkaline Phosphatase 50, Total Protein 6.0L, Albumin 3.6 Assessment/Plan Assessment/Plan Assess & Plan/Chief Complaint Complete small bowel obstruction, etiology unclear. Needs laparotomy, possible bowel resection. Central line for hemodynamic monitoring and TPN. Expected recovery, complications of intra-abdominal abscess, cardiac morbidity, etc discussed in detail. Willing to proceed Final Diagnosis Small bowel obstruction. Clinical Quality Measures DVT/VTE Risk/Contraindication: Risk Factor Score Per Nursin RFS Level Per Nursing on Admit: 2=Moderate TRUPTI COLEMAN MD Mar 13, 2017 09:12
[2017-03-13] MEDS ORDERED: metroNIDAZOLE 500MG/100ML IVPB 100 ML IV ONE (09:15)
[2017-03-13] MEDS ORDERED: CLINDAMYCIN INJECTION 900 MG in NS (IVPB) 50 ML IV ONE (09:15)
--- NOTE | 2017-03-13 09:37 | Diagnostic Imaging Report ---
INDICATION: Small bowel obstruction followup EXAMINATION: Abdomen 03/13/[address] dated 03/12/2017 FINDINGS: Diffusely dilated small bowel loops with multiple air-fluid level seen in the mid and upper abdomen. No free air appreciated. A small amount of air is seen in the left colon. There is contrast in the urinary bladder consistent with recent recent CT imaging. IMPRESSION: 1. Findings likely on the basis of a small bowel obstruction versus marked ileus; continued followup recommended Dictated by: Dictated on workstation # [id number]
[2017-03-13] MEDS ORDERED: HEParin (CENTRAL IV FLUSH) 500 UNIT/5 ML SYR ONE ×2 (09:50→11:23)
[2017-03-13] MEDS ORDERED: BUP/EPI 0.25% 1:200,000 (MARCAINE) 10 ML VIAL IJ ONE (09:50)
[2017-03-13] MEDS ORDERED: MEPERIDINE (DEMEROL) INJ 50 MG/ML ONE (10:08)
[2017-03-13] MEDS ORDERED: morphine INJ 10 MG/ML 1ML (SYR OR VIAL) ONE (10:08)
[2017-03-13] MEDS ORDERED: HYDROmorphone (DILAUDID) 2 MG/ML VIAL ONE (10:08)
[2017-03-13] MEDS ORDERED: ONDANSETRON 4 MG/2 ML (SDV) Z0FRAN ONE ×2 (10:08→10:46)
[2017-03-13] MEDS ORDERED: LACTATED RINGERS 1,000 ML IV ONE ×5 (10:46→14:30)
[2017-03-13] MEDS ORDERED: ROCURONIUM 50 MG/5 ML (ZEMURON) VIAL IV ONE (10:46)
[2017-03-13] MEDS ORDERED: LIDOCAINE PF 2% 5 ML (XYLOCAINE) VIAL ONE (10:46)
[2017-03-13] MEDS ORDERED: LIDOCAINE JELLY 2% (XYLOCAINE) 5 ML TUBE ONE (10:46)
[2017-03-13] MEDS ORDERED: proPOfol 200 MG/20 ML (DIPRIVAN) VIAL IV ONE ×2 (10:46→12:44)
[2017-03-13] MEDS ORDERED: fentaNYL INJECTION 100 MCG/2 ML AMP ONE (10:47)
[2017-03-13] MEDS ORDERED: MIDAZOLAM 2 MG/2 ML (VERSED) VIAL ONE (10:47)
[2017-03-13] MEDS: LACTATED RINGERS 1,000 ML IV PRN ×6 (10:55→14:26)
--- NOTE | 2017-03-13 11:08 | Progress Note-Hospitalist ---
Subjective HPI/CC On Admission Date Seen by Provider: Mar 13, 2017 Time Seen by Provider: 09:00 Mr. Dye is a 66-year-old white male who awoke from sleep around 130 a.m. this morning with epigastric abdominal pain. It was followed by nausea and vomiting. He denied coffee-ground emesis or bright red blood. Intractable vomiting persisted causing his present to the emergency room. He denied chills or fever. He reports he is prone to constipation but had a stool was not hard this morning. He has no significant past surgical history and has no past history of bowel obstruction. He underwent abdominal sonography that was unremarkable in the emergency room. This was followed by a CT scan of the abdomen and pelvis which revealed findings concerning for underlying small bowel obstruction. Patient states that he had overdone it moving 2 daughters in the heat over the weekend. He reports he had been feeling well until waking up this morning however and had no abdominal symptoms yesterday. He denies chills fever or night sweats. Subjective/Events-last exam Mr. Dye requiring replacement of NG tube with prompt return of 2.6 L of bilious fluid and improvement in nausea and abdominal discomfort. He currently denies abdominal pain but is had no gas or stool output. He had some mild chills last night MAXIMUM TEMPERATURE 100.5 Objective Exam Vital Signs Vital Sign - Last 12Hours 03/10/17 06:40 Temp 97.7 Pulse 52 Resp 18 B/P (MAP) 166/83 Pulse Ox 97 O2 Delivery Room Air Capillary Refill : Less Than 3 Seconds General Appearance: No Apparent Distress Respiratory: Chest Non Tender, Lungs Clear, Normal Breath Sounds, No Accessory Muscle Use, No Respiratory Distress Cardiovascular: Regular Rate, Rhythm, No Edema, No Gallop, No JVD, No Murmur, Normal Peripheral Pulses Gastrointestinal: Other (Afshin distention unchanged mild epigastric discomfort to palpation without rebound or guarding. No masses or organomegaly noted. Today bowel sounds were not apparent.) Results/Procedures Lab Laboratory Tests 03/13/17 05:22 Assessment/Plan Assessment and Plan Assess & Plan/Chief Complaint 1. Small bowel obstruction versus ileus ischemia with concerns for bacterial overgrowth and secondary infection necessitate continued broad-spectrum antibiotic coverage. repeat CT scanning concerning for high-grade obstruction somewhere in the mid small bowel with new ascites predominantly right paracolic gutter area and reported evidence for pneumatosis. Dr. Crum will be taking the patient for exploratory laparotomy this morning. Discussed concerns with the family and patient who understand the gravity of his current situation. We' ll continue broad-spectrum antibiotic coverage. The patient did however note some itching and edema in his face and hands after his first dose and injection. He did not have evidence for rash today and symptoms of improved but Zosyn has been discontinued. We'll go back to [facility]ul and Alyse. ADI SUMMERS MD Mar 13, 2017 11:08
[2017-03-13] MEDS ORDERED: SEVOFLURANE (ULTANE) 15 ML INHAL SOLN ONE ×4 (12:44→13:31)
[2017-03-13] MEDS ORDERED: fentaNYL INJECTION 100 MCG/2 ML AMP IVP PRN (12:45)
[2017-03-13] MEDS ORDERED: MEPERIDINE (DEMEROL) INJ 50 MG/ML IVP PRN (12:45)
[2017-03-13] MEDS ORDERED: ONDANSETRON 4 MG/2 ML (SDV) Z0FRAN IVP PRN ×2 (12:45→13:15)
--- NOTE | 2017-03-13 13:12 | Operative Report ---
Operative Report Date of Procedure/Surgery Mar 13, 2017 Surgeon (s) TRUPTI COLEMAN MD Senior Auditor (s): Not applicable Post-Operative Diagnosis Closed loop complete small bowel obstruction Procedure Performed 1. Central line placement 2. Laparotomy/small bowel resection Description of Procedure Anesthesia Type: General Estimated blood loss (mL): Minimal Specimen(s) collected/removed Segment of small bowel Description of the Procedure Indication for procedure:This gentleman was found to have complete mechanical bowel obstruction, involving the mid to distal small bowel. Since conservative measures were unsuccessful, it was felt reasonable to proceed with laparotomy to identify the source of obstruction possibly requiring bowel obstruction was highlighted. To facilitate invasive hemodynamic monitoring and TPN, placing a central venous catheter was also planned. Informed consent was obtained after reviewing the operative details and complications of intra-abdominal abscess, anastomotic leak, cardiorespiratory dysfunction and wound infection. Description of procedure: He was placed supine on the operative table and general anesthesia induced using an endotracheal tube. Clindamycin and Flagyl were administered intravenously as prophylaxis against wound infection. Sequential compression devices were placed around his legs, to minimize the risk of venous thrombosis. Central venous catheter placement:His left infraclavicular fossa was prepared and draped in the usual sterile manner. Subclavian vein was accessed and a floppy guidewire introduced into the heart. Subcutaneous tract was gently dilated using a silastic sheath and a triple-lumen central venous catheter placed using Seldinger technique. All the channels were aspirated and flushed with heparinized saline. The catheter itself was secured using a silk suture and a dressing applied. At the end of the operation, fluoroscopy was performed and the central venous catheter was found to be in satisfactory position. Laparotomy/small bowel resection: Abdomen was prepared and draped in the usual sterile manner. An upper midline incision was made and abdomen entered safely. Non-sanguinous ascites fluid was encountered and suctioned out. Dilated loops of proximal small bowel were encountered and decompressed by gently milking the contents back into the stomach and suctioning out using the existing nasogastric tube. Further exploration led to a collapsed loop with 2 adjacent segments of small bowel, most likely proximal ileum constricted by the band, adherent to the retroperitoneum along the left side of the abdomen. The involved segment appeared to be very erythematous and therefore resection was felt to be appropriate. A segment about 20 cm long was resected using EFRAIN-55 staplers. A [id number] anastomosis was created using the same stapling device. The enterotomy was then closed using a TA 60 stapling device. The staple line was reinforced with Ligaclips and 3-0 silk sutures. An additional 3 -0 silk suture was placed along the crotch of the staple line to avoid any tension. Abdomen was irrigated with saline and the fascia closed using #2 Prolene in a continuous fashion. Subcutaneous tissue was closed using 2-0 Vicryl and skin with 4-0 Vicryl, in a subcapsular fashion 0.25 percent Marcaine with epinephrine was infiltrated along the incision at the end of the operation He tolerated the procedure well, was extubated and taken to the recovery room in a stable condition. Solen, sponges and instruments were correct the end of the operation Findings of the Procedure Please review the operative report Allergies and Home Medications Allergies Coded Allergies: piperacillin (Verified Allergy, Mild, RASH, 03/12/17) tazobactam (Verified Allergy, Mild, RASH, 03/12/17) Home Medications Benazepril HCl 20 Mg Tablet, 20 MG PO DAILY, (Reported) Bupropion HCl 150 Mg Tab.er.24h, 150 MG PO DAILY, (Reported) Docusate Sodium 100 Mg Capsule, 100 MG PO DAILY PRN for CONSTIPATION-1ST LINE, ( Reported) Doxycycline Hyclate 100 Mg Tablet, 100 MG PO BID, (Reported) FILLED 02/18/17 #60 FOR A 30 DAY THERAPY Tadalafil 5 Mg Tablet, 5 MG PO DAILY, (Reported) TRUPTI COLEMAN MD Mar 13, 2017 13:12
[2017-03-13] MEDS ORDERED: LACTATED RINGERS 1,000 ML IV PRN (13:13)
[2017-03-13] MEDS ORDERED: fentaNYL INJECTION 100 MCG/2 ML AMP IV PRN (13:15)
[2017-03-13] MEDS ORDERED: meTOprolol 5 MG/5 ML (LOPRESSOR) VIAL IV PRN (13:15)
[2017-03-13] MEDS: HYDROmorphone (DILAUDID) 2 MG/ML VIAL IVP PRN ×4 (13:30→14:00)
--- NOTE | 2017-03-13 13:35 | Diagnostic Imaging Report ---
INDICATION: Central line placement EXAMINATION: Fluoroscopic evaluation of the chest 03/13/2017. FINDINGS: Single view of the chest is provided. This is markedly limited. There is what is likely an ET tube just past the thoracic inlet. A tubular structure is seen both to the left and to the right of the spine and subsequent chest x-ray recommended. IMPRESSION: 1. Markedly limited evaluation. Followup chest x-rays recommended. Dictated by: Dictated on workstation # [id number]
[2017-03-13] MEDS: morphine INJ 10 MG/ML 1ML (SYR OR VIAL) IVP PRN ×2 (13:37→13:45)
[2017-03-13] MEDS ORDERED: NS IV 1000 ML 1,000 ML ONE (13:39)
[2017-03-13] MEDS: metroNIDAZOLE 500MG/100ML IVPB 100 ML IV SCH (16:55)
[2017-03-13] MEDS: CLINDAMYCIN INJECTION 600 MG in NS (IVPB) 50 ML IV SCH (16:56)
[2017-03-13] MEDS ORDERED: ENALAPRILAT 2.5 MG/2 ML (VASOTEC) VIAL IV PRN (18:00)
[2017-03-13] MEDS ORDERED: ENALAPRILAT 2.5 MG/2 ML (VASOTEC) VIAL IV SCH (18:00)
[2017-03-14] VITALS (17 sets, daily range): BP systolic 135–170; BP diastolic 64–93
[2017-03-14] MEDS: CLINDAMYCIN INJECTION 600 MG in NS (IVPB) 50 ML IV SCH ×2 (00:05→08:39)
[2017-03-14] MEDS: metroNIDAZOLE 500MG/100ML IVPB 100 ML IV SCH (00:05)
[2017-03-14] MEDS: D5 NS W/KCL 20 MEQ/L 1,000 ML IV SCH ×2 (01:31→08:38)
[2017-03-14] MEDS: NS IV 500 ML 500 ML IV SCH (01:31)
[2017-03-14 04:57] LABS: BASOPHILS % (AUTO) 0 % (0-10); EOSINOPHILS % (AUTO) 0 % (0-10); LYMPHOCYTES # (AUTO) 0.9 X 10^3 (1.0-4.0); LYMPHOCYTES % (AUTO) 7 % (12-44); MEAN CORPUSCULAR HEMOGLOBIN 32 PG (25-34); MEAN CORPUSCULAR HGB CONC 36 G/DL (32-36); MEAN CORPUSCULAR VOLUME 89 FL (80-99); MEAN PLATELET VOLUME 10.2 FL (7.4-10.4); MONOCYTES # (AUTO) 1.9 X 10^3 (0.0-1.0); MONOCYTES % (AUTO) 14 % (0-12); NEUTROPHILS # (AUTO) 10.4 X 10^3 (1.8-7.8); NEUTROPHILS % (AUTO) 78 % (42-75); PLATELET COUNT 208 10^3/uL (130-400); RED BLOOD COUNT 4.54 10^6/uL (4.35-5.85); RED CELL DISTRIBUTION WIDTH 12.6 % (10.0-14.5); WHITE BLOOD COUNT 13.4 10^3/uL (4.3-11.0)
[2017-03-14 05:16] LABS: ANION GAP 6 MMOL/L (5-14); BLOOD UREA NITROGEN 8 MG/DL (7-18); BUN/CREATININE RATIO 11; CALCIUM 7.9 MG/DL (8.5-10.1); CARBON DIOXIDE 26 MMOL/L (21-32); CHLORIDE 98 MMOL/L (98-107); CREATININE SERUM 0.75 MG/DL (0.60-1.30); GFR ESTIMATED > 60; GLUCOSE 125 MG/DL (70-105); MAGNESIUM 1.6 MG/DL (1.8-2.4); PHOSPHORUS 2.1 MG/DL (2.3-4.7); POTASSIUM 3.4 MMOL/L (3.6-5.0); SODIUM 130 MMOL/L (135-145)
[2017-03-14] MEDS: POTASSIUM CL 10MEQ/50ML IVPB 50 ML IV SCH ×2 (05:35→06:33)
[2017-03-14] MEDS: MAGNESIUM 1 GM/100 ML IVPB 100 ML IV SCH ×5 (05:35→12:21)
[2017-03-14] MEDS ORDERED: MAGNESIUM 1 GM/100 ML IVPB 100 ML IV SCH (06:00)
[2017-03-14] MEDS ORDERED: POTASSIUM CL 10MEQ/50ML IVPB 50 ML IV SCH ×2 (06:00→08:30)
[2017-03-14] MEDS ORDERED: KCL 20 MEQ TAB (K-DUR) PO SCH (06:00)
[2017-03-14] MEDS ORDERED: TPN IV SCH (08:30)
[2017-03-14] MEDS: buPROPion SR 150 MG (WELLBUTRIN SR) TAB PO SCH (08:39)
[2017-03-14] MEDS: hydrALAZINE (APRESOLINE) 25 MG TAB PO SCH ×3 (08:39→21:35)
[2017-03-14] MEDS: BENAZEPRIL 20 MG (LOTENSIN) TAB PO SCH (08:39)
[2017-03-14] MEDS: ONDANSETRON 4 MG/2 ML (SDV) Z0FRAN IV PRN (08:40)
[2017-03-14] MEDS: HYDROcodone/APAP 7.5 MG/325 MG (LORTAB, LORCET PLUS) TABLET PO PRN ×2 (08:40→14:33)
[2017-03-14] MEDS ORDERED: POTASSIUM PHOSPHATE INJ 30 MM in NS (IVPB) 250 ML IV NR (09:00)
--- NOTE | 2017-03-14 11:07 | Progress Note-Hospitalist ---
Subjective HPI/CC On Admission Date Seen by Provider: Mar 14, 2017 Time Seen by Provider: 07:40 Mr. Dye is a 66-year-old white male who awoke from sleep around 130 a.m. this morning with epigastric abdominal pain. It was followed by nausea and vomiting. He denied coffee-ground emesis or bright red blood. Intractable vomiting persisted causing his present to the emergency room. He denied chills or fever. He reports he is prone to constipation but had a stool was not hard this morning. He has no significant past surgical history and has no past history of bowel obstruction. He underwent abdominal sonography that was unremarkable in the emergency room. This was followed by a CT scan of the abdomen and pelvis which revealed findings concerning for underlying small bowel obstruction. Patient states that he had overdone it moving 2 daughters in the heat over the weekend. He reports he had been feeling well until waking up this morning however and had no abdominal symptoms yesterday. He denies chills fever or night sweats. Subjective/Events-last exam patient denies any significant abdominal pain or nausea. He also denies chills fever shortness of breath or chest pain. Objective Exam Vital Signs Vital Sign - Last 12Hours 03/10/17 06:40 Temp 97.7 Pulse 52 Resp 18 B/P (MAP) 166/83 Pulse Ox 97 O2 Delivery Room Air Capillary Refill : Less Than 3 Seconds General Appearance: No Apparent Distress, WD/WN Respiratory: Chest Non Tender, Lungs Clear, Normal Breath Sounds, No Accessory Muscle Use, No Respiratory Distress Cardiovascular: Regular Rate, Rhythm, No Edema, No Gallop, No JVD, No Murmur, Normal Peripheral Pulses Gastrointestinal: Other (midline abdominal incision minimal serosanguineous drainage with decreased distention compared to yesterday. A few bowel sounds noted.) Results/Procedures Lab Laboratory Tests 03/14/17 04:40 Assessment/Plan Assessment and Plan Assess & Plan/Chief Complaint 1. Small bowel obstruction with secondary ischemia requiring resection patient doing well without evidence for postop complication at this time.. 2. Mild blood pressure elevation the Benazepril has been resumed. 3. Mild hypokalemia resolved with IV replacement. 4. Transfer back to the floor okay with me pending Dr. Crum evaluation and consent. ADI SUMMERS MD Mar 14, 2017 11:07
--- NOTE | 2017-03-14 11:10 | Diagnostic Imaging Report ---
Postoperative bowel surgery. EXAMINATION: Chest, 03/14/2017. COMPARISON: 03/11/2017. FINDINGS: The heart is minimally prominent some of which could be due to the portable technique. Low volumes noted with atelectasis in the left lung base. No pneumothorax. There are no effusions. Feeding tube is seen coursing beneath diaphragm and with tip in the stomach. There is a left-sided PICC line with the tip at the junction of the SVC and right atrium. IMPRESSION: 1. Mild prominence of the heart. 2. Minimal left base atelectasis. Dictated by: Dictated on workstation # [id number]
--- NOTE | 2017-03-14 12:04 | Progress Note-Standard ---
Standard Progress Note Progress Notes/Assess & Plan Date Seen by Provider: Mar 14, 2017 Time Seen by Provider: 11:41 Progress/Assessment & Plan uneventful postoperative night. Slight hypokalemia, being addressed. Incision dry. We will start TPN today and transferred to the regular nursing floor. Final Diagnosis complete small bowel obstruction. TRUPTI COLEMAN MD Mar 14, 2017 12:04 pm
[2017-03-14] MEDS: ENOXAPARIN 40 MG/0.4 ML (LOVENOX) SYR SC SCH (12:21)
[2017-03-14] MEDS ORDERED: ELECTROLYTES INJ 40 ML, POTASSIUM PHOSPHATE INJ 24 MM, VITAMIN MULTI INJECTION 10 ML, T... IV SCH ×7 (17:00)
[2017-03-14] MEDS: 1/2 NS IV SOLUTION 1,000 ML IV SCH (17:06)
--- NOTE | 2017-03-14 18:12 | Anesthesia-General Post-Op ---
General Patient Condition Mental Status/LOC: Same as Preop Cardiovascular: Satisfactory Nausea/Vomiting: Absent Respiratory: Satisfactory Pain: Controlled Complications: Absent Post Op Complications Complications None Follow Up Care/Instructions Patient Instructions None needed. Anesthesia/Patient Condition Patient Condition Patient is doing well, no complaints, stable vital signs, no apparent adverse anesthesia problems. No complications reported per nursing. RUTH HEBERT CRNA Mar 14, 2017 18:12
[2017-03-15 02:24] VITALS: BP 159/74
[2017-03-15 03:35] VITALS: BP 147/75
[2017-03-15 05:18] LABS: BASOPHILS % (AUTO) 0 % (0-10); EOSINOPHILS # (AUTO) 0.1 10^3/uL (0.0-0.3); EOSINOPHILS % (AUTO) 1 % (0-10); LYMPHOCYTES # (AUTO) 0.7 X 10^3 (1.0-4.0); LYMPHOCYTES % (AUTO) 6 % (12-44); MEAN CORPUSCULAR HEMOGLOBIN 32 PG (25-34); MEAN CORPUSCULAR HGB CONC 35 G/DL (32-36); MEAN CORPUSCULAR VOLUME 89 FL (80-99); MEAN PLATELET VOLUME 10.2 FL (7.4-10.4); MONOCYTES # (AUTO) 1.5 X 10^3 (0.0-1.0); MONOCYTES % (AUTO) 13 % (0-12); NEUTROPHILS % (AUTO) 79 % (42-75); PLATELET COUNT 189 10^3/uL (130-400); RED BLOOD COUNT 4.29 10^6/uL (4.35-5.85); RED CELL DISTRIBUTION WIDTH 12.5 % (10.0-14.5); WHITE BLOOD COUNT 11.4 10^3/uL (4.3-11.0)
[2017-03-15 05:34] LABS: ANION GAP 11 MMOL/L (5-14); BLOOD UREA NITROGEN 10 MG/DL (7-18); BUN/CREATININE RATIO 14; CALCIUM 7.9 MG/DL (8.5-10.1); CARBON DIOXIDE 25 MMOL/L (21-32); CHLORIDE 95 MMOL/L (98-107); CREATININE SERUM 0.73 MG/DL (0.60-1.30); GFR ESTIMATED > 60; GLUCOSE 130 MG/DL (70-105); SODIUM 131 MMOL/L (135-145)
[2017-03-15 08:00] VITALS: BP 156/83
[2017-03-15] MEDS: buPROPion SR 150 MG (WELLBUTRIN SR) TAB PO SCH (08:34)
[2017-03-15] MEDS: BENAZEPRIL 20 MG (LOTENSIN) TAB PO SCH (08:34)
[2017-03-15] MEDS: hydrALAZINE (APRESOLINE) 25 MG TAB PO SCH ×3 (08:34→20:21)
--- NOTE | 2017-03-15 08:38 | Progress Note-Hospitalist ---
Subjective HPI/CC On Admission Date Seen by Provider: Mar 15, 2017 Time Seen by Provider: 07:20 Mr. Dye is a 66-year-old white male who awoke from sleep around 130 a.m. this morning with epigastric abdominal pain. It was followed by nausea and vomiting. He denied coffee-ground emesis or bright red blood. Intractable vomiting persisted causing his present to the emergency room. He denied chills or fever. He reports he is prone to constipation but had a stool was not hard this morning. He has no significant past surgical history and has no past history of bowel obstruction. He underwent abdominal sonography that was unremarkable in the emergency room. This was followed by a CT scan of the abdomen and pelvis which revealed findings concerning for underlying small bowel obstruction. Patient states that he had overdone it moving 2 daughters in the heat over the weekend. He reports he had been feeling well until waking up this morning however and had no abdominal symptoms yesterday. He denies chills fever or night sweats. Subjective/Events-last exam no flatus as of yet but patient denies cramping with only mild incisional intermittent discomfort. He's had no chills or fever and has been ambulating in the halls independently. Objective Exam Vital Signs Vital Sign - Last 12Hours 03/10/17 06:40 Temp 97.7 Pulse 52 Resp 18 B/P (MAP) 166/83 Pulse Ox 97 O2 Delivery Room Air Capillary Refill : Less Than 3 Seconds General Appearance: No Apparent Distress, WD/WN Respiratory: Chest Non Tender, Lungs Clear, Normal Breath Sounds, No Accessory Muscle Use, No Respiratory Distress Cardiovascular: Regular Rate, Rhythm, No Edema, No Gallop, No JVD, No Murmur, Normal Peripheral Pulses Gastrointestinal: Other (abdominal distention with a few hypoactive bowel sounds. Incision looks clean no bleeding or erythema.) Results/Procedures Lab Laboratory Tests 03/15/17 05:10 Assessment/Plan Assessment and Plan Assess & Plan/Chief Complaint 1. Small bowel obstruction with secondary ischemia requiring resection postop day 2 patient doing well without evidence for postop complication at this time.. 2. Mild blood pressure elevation Benazepril has been resumed tinea low-dose hydralazine with likely discontinuance in the near future.. 3. Mild hypokalemia getting some potassium and TPN but considering NG suction will give another 20 mEq IV now. ADI SUMMERS MD Mar 15, 2017 08:38
[2017-03-15] MEDS ORDERED: POTASSIUM CL 10MEQ/50ML IVPB 50 ML IV SCH (08:45)
[2017-03-15] MEDS: POTASSIUM CL 10MEQ/50ML IVPB 50 ML IV SCH ×6 (09:11→17:25)
[2017-03-15 09:50] LABS: MAGNESIUM 2.2 MG/DL (1.8-2.4)
[2017-03-15] MEDS ORDERED: SODIUM PHOSPHATE INJ 45 MM in NS (IVPB) 250 ML INJ ONE (10:19)
[2017-03-15] MEDS: 1/2 NS IV SOLUTION 1,000 ML IV SCH ×2 (11:48→17:33)
[2017-03-15 12:00] VITALS: BP 168/81
[2017-03-15] MEDS: meTOprolol 5 MG/5 ML (LOPRESSOR) VIAL IV PRN (12:35)
--- NOTE | 2017-03-15 13:40 | Progress Note-Standard ---
Standard Progress Note Progress Notes/Assess & Plan Date Seen by Provider: Mar 15, 2017 Time Seen by Provider: 09:58 Progress/Assessment & Plan uneventful postoperative night. Slight hypokalemia, being addressed. Incision dry. We will start TPN today and transferred to the regular nursing floor. continues to improve. Has not passed flatus. Erythema along the inferior aspect of the incision with no tenderness. Will continue TPN and await bowel function. Hypokalemia, being addressed. Final Diagnosis small bowel obstruction. Postoperative hypokalemia TRUPTI COLEMAN MD Mar 15, 2017 1:40 pm
[2017-03-15] MEDS: ENOXAPARIN 40 MG/0.4 ML (LOVENOX) SYR SC SCH (13:47)
[2017-03-15 16:25] VITALS: BP 150/67
[2017-03-15] MEDS ORDERED: SODIUM ACETATE IV SCH ×11 (17:00)
[2017-03-15] MEDS ORDERED: [UNRECOGNIZED DRUG - OTHER] IV SCH ×11 (17:00)
[2017-03-15] MEDS ORDERED: SODIUM CHLORIDE IV SCH ×11 (17:00)
[2017-03-15] MEDS: METOCLOPRAMIDE INJ 10 MG/2 ML (REGLAN) IVP SCH ×2 (17:33→23:42)
[2017-03-15 19:30] VITALS: BP 136/69
[2017-03-16] VITALS: BP 131/73
[2017-03-16 03:45] VITALS: BP 154/74
[2017-03-16] MEDS: METOCLOPRAMIDE INJ 10 MG/2 ML (REGLAN) IVP SCH ×3 (05:20→17:32)
[2017-03-16 05:28] LABS: BASOPHILS % (AUTO) 0 % (0-10); EOSINOPHILS # (AUTO) 0.2 10^3/uL (0.0-0.3); EOSINOPHILS % (AUTO) 2 % (0-10); LYMPHOCYTES # (AUTO) 0.9 X 10^3 (1.0-4.0); LYMPHOCYTES % (AUTO) 7 % (12-44); MEAN CORPUSCULAR HEMOGLOBIN 32 PG (25-34); MEAN CORPUSCULAR HGB CONC 35 G/DL (32-36); MEAN CORPUSCULAR VOLUME 90 FL (80-99); MEAN PLATELET VOLUME 10.3 FL (7.4-10.4); MONOCYTES # (AUTO) 1.6 X 10^3 (0.0-1.0); MONOCYTES % (AUTO) 13 % (0-12); NEUTROPHILS # (AUTO) 9.7 X 10^3 (1.8-7.8); NEUTROPHILS % (AUTO) 78 % (42-75); PLATELET COUNT 213 10^3/uL (130-400); RED BLOOD COUNT 4.37 10^6/uL (4.35-5.85); RED CELL DISTRIBUTION WIDTH 12.7 % (10.0-14.5); WHITE BLOOD COUNT 12.4 10^3/uL (4.3-11.0)
[2017-03-16 05:53] LABS: ANION GAP 7 MMOL/L (5-14); BLOOD UREA NITROGEN 16 MG/DL (7-18); BUN/CREATININE RATIO 21; CALCIUM 8.5 MG/DL (8.5-10.1); CARBON DIOXIDE 33 MMOL/L (21-32); CHLORIDE 95 MMOL/L (98-107); CREATININE SERUM 0.78 MG/DL (0.60-1.30); GFR ESTIMATED > 60; GLUCOSE 113 MG/DL (70-105); POTASSIUM 3.3 MMOL/L (3.6-5.0); SODIUM 135 MMOL/L (135-145)
[2017-03-16] MEDS ORDERED: POTASSIUM CL 10MEQ/50ML IVPB 50 ML IV ONE (07:15)
[2017-03-16 08:00] VITALS: BP 147/74
[2017-03-16] MEDS: BENAZEPRIL 20 MG (LOTENSIN) TAB PO SCH (08:04)
[2017-03-16] MEDS: hydrALAZINE (APRESOLINE) 25 MG TAB PO SCH ×3 (08:04→20:54)
[2017-03-16] MEDS: POTASSIUM CL 10MEQ/50ML IVPB 50 ML IV SCH ×5 (08:04→12:26)
[2017-03-16] MEDS: buPROPion SR 150 MG (WELLBUTRIN SR) TAB PO SCH (08:04)
[2017-03-16] MEDS: PANTOPRAZOLE 40 MG/10 ML (PROTONIX) VIAL IV SCH (08:04)
[2017-03-16 08:10] LABS: MAGNESIUM 2.2 MG/DL (1.8-2.4); PHOSPHORUS 3.3 MG/DL (2.3-4.7)
--- NOTE | 2017-03-16 09:32 | Progress Note-Standard ---
Standard Progress Note Progress Notes/Assess & Plan Date Seen by Provider: Mar 16, 2017 Time Seen by Provider: 09:02 Progress/Assessment & Plan uneventful postoperative night. Slight hypokalemia, being addressed. Incision dry. We will start TPN today and transferred to the regular nursing floor. continues to improve. Has not passed flatus. Erythema along the inferior aspect of the incision with no tenderness. Will continue TPN and await bowel function. Hypokalemia, being addressed. Unchanged, no new concerns. Await resumption of bowel function Final Diagnosis Small bowel obstruction TRUPTI COLEMAN MD Mar 16, 2017 9:32 am
--- NOTE | 2017-03-16 09:50 | Progress Note-Hospitalist ---
Subjective HPI/CC On Admission Date Seen by Provider: Mar 16, 2017 Time Seen by Provider: 08:30 Mr. Dye is a 66-year-old white male who awoke from sleep around 130 a.m. this morning with epigastric abdominal pain. It was followed by nausea and vomiting. He denied coffee-ground emesis or bright red blood. Intractable vomiting persisted causing his present to the emergency room. He denied chills or fever. He reports he is prone to constipation but had a stool was not hard this morning. He has no significant past surgical history and has no past history of bowel obstruction. He underwent abdominal sonography that was unremarkable in the emergency room. This was followed by a CT scan of the abdomen and pelvis which revealed findings concerning for underlying small bowel obstruction. Patient states that he had overdone it moving 2 daughters in the heat over the weekend. He reports he had been feeling well until waking up this morning however and had no abdominal symptoms yesterday. He denies chills fever or night sweats. Subjective/Events-last exam Mr. Dye denies abdominal pain chills or fever. He's had no stool or flatus as of yet. Objective Exam Vital Signs Vital Sign - Last 12Hours 03/10/17 06:40 Temp 97.7 Pulse 52 Resp 18 B/P (MAP) 166/83 Pulse Ox 97 O2 Delivery Room Air Capillary Refill : Less Than 3 Seconds General Appearance: No Apparent Distress, WD/WN Respiratory: Chest Non Tender, Lungs Clear, Normal Breath Sounds, No Accessory Muscle Use, No Respiratory Distress Cardiovascular: Regular Rate, Rhythm, No Edema, No Gallop, No JVD, No Murmur, Normal Peripheral Pulses Gastrointestinal: Other (Bowel sounds are more prominent today with no evidence for distention. There are still a fair amount of NG tube output. There is periumbilical erythema without induration or warmth at the site of previous Marcaine injection per Dr. Crum. No mass or organomegaly noted.) Results/Procedures Lab Laboratory Tests 03/16/17 05:20 Assessment/Plan Assessment and Plan Assess & Plan/Chief Complaint 1. Small bowel obstruction with secondary ischemia requiring resection postop day 3 patient doing well without evidence for postop complication at this time other than ongoing ileus patient reassured. 2. Mild blood pressure elevation Benazepril has been resumed. Patient on low- dose hydralazine with likely discontinuance in the near future.. 3. Mild hypokalemia and you IV replacement K+ up to 3.3. 4. No arrhythmias noted will DC IV metoprolol when necessary order and telemetry. ADI SUMMERS MD Mar 16, 2017 09:49
[2017-03-16 12:00] VITALS: BP 149/72
[2017-03-16] MEDS: ENOXAPARIN 40 MG/0.4 ML (LOVENOX) SYR SC SCH (14:53)
[2017-03-16 16:05] VITALS: BP 145/76
[2017-03-16] MEDS: 1/2 NS IV SOLUTION 1,000 ML IV SCH (16:40)
[2017-03-16] MEDS ORDERED: [UNRECOGNIZED DRUG - OTHER] IV SCH ×11 (17:00)
[2017-03-16] MEDS ORDERED: SODIUM CHLORIDE IV SCH ×11 (17:00)
[2017-03-16] MEDS ORDERED: SODIUM ACETATE IV SCH ×11 (17:00)
[2017-03-16 20:52] VITALS: BP 139/71
[2017-03-17] VITALS (7 sets, daily range): BP systolic 134–154; BP diastolic 67–74
[2017-03-17] MEDS: METOCLOPRAMIDE INJ 10 MG/2 ML (REGLAN) IVP SCH ×5 (00:29→23:41)
[2017-03-17 06:11] LABS: BASOPHILS % (AUTO) 0 % (0-10); EOSINOPHILS # (AUTO) 0.5 10^3/uL (0.0-0.3); EOSINOPHILS % (AUTO) 4 % (0-10); LYMPHOCYTES # (AUTO) 1.2 X 10^3 (1.0-4.0); LYMPHOCYTES % (AUTO) 10 % (12-44); MEAN CORPUSCULAR HEMOGLOBIN 32 PG (25-34); MEAN CORPUSCULAR HGB CONC 35 G/DL (32-36); MEAN CORPUSCULAR VOLUME 91 FL (80-99); MEAN PLATELET VOLUME 10.2 FL (7.4-10.4); MONOCYTES # (AUTO) 1.5 X 10^3 (0.0-1.0); MONOCYTES % (AUTO) 13 % (0-12); NEUTROPHILS # (AUTO) 8.2 X 10^3 (1.8-7.8); NEUTROPHILS % (AUTO) 72 % (42-75); PLATELET COUNT 238 10^3/uL (130-400); RED BLOOD COUNT 4.08 10^6/uL (4.35-5.85); RED CELL DISTRIBUTION WIDTH 12.8 % (10.0-14.5); WHITE BLOOD COUNT 11.3 10^3/uL (4.3-11.0)
[2017-03-17 06:32] LABS: ANION GAP 9 MMOL/L (5-14); BLOOD UREA NITROGEN 19 MG/DL (7-18); BUN/CREATININE RATIO 27; CALCIUM 8.6 MG/DL (8.5-10.1); CARBON DIOXIDE 24 MMOL/L (21-32); CHLORIDE 102 MMOL/L (98-107); GFR ESTIMATED > 60; GLUCOSE 102 MG/DL (70-105); POTASSIUM 3.7 MMOL/L (3.6-5.0); SODIUM 135 MMOL/L (135-145)
[2017-03-17 08:28] LABS: MAGNESIUM 2.1 MG/DL (1.8-2.4); PHOSPHORUS 3.1 MG/DL (2.3-4.7)
--- NOTE | 2017-03-17 08:38 | Progress Note-Hospitalist ---
Subjective HPI/CC On Admission Date Seen by Provider: Mar 17, 2017 Time Seen by Provider: 08:15 Mr. Dye is a 66-year-old white male who awoke from sleep around 130 a.m. this morning with epigastric abdominal pain. It was followed by nausea and vomiting. He denied coffee-ground emesis or bright red blood. Intractable vomiting persisted causing his present to the emergency room. He denied chills or fever. He reports he is prone to constipation but had a stool was not hard this morning. He has no significant past surgical history and has no past history of bowel obstruction. He underwent abdominal sonography that was unremarkable in the emergency room. This was followed by a CT scan of the abdomen and pelvis which revealed findings concerning for underlying small bowel obstruction. Patient states that he had overdone it moving 2 daughters in the heat over the weekend. He reports he had been feeling well until waking up this morning however and had no abdominal symptoms yesterday. He denies chills fever or night sweats. Subjective/Events-last exam Mr. Dye is feeling much better he had a large bowel movement this morning without evidence for melena or blood. He denies abdominal cramping chills fever chest pain or shortness of breath. He is tolerated some broth and is feeling a little full but denies discomfort. He is still on TPN. Objective Exam Vital Signs Vital Sign - Last 12Hours 03/11/17 00:00 Temp 99.0 Pulse 59 Resp 19 B/P (MAP) 175/77 Pulse Ox 98 O2 Delivery Room Air Capillary Refill : Less Than 3 Seconds General Appearance: WD/WN Respiratory: Chest Non Tender, Lungs Clear, Normal Breath Sounds, No Accessory Muscle Use, No Respiratory Distress Cardiovascular: Regular Rate, Rhythm, No Edema, No Gallop, No JVD, No Murmur, Normal Peripheral Pulses Gastrointestinal: Normal Bowel Sounds, No Organomegaly, No Pulsatile Mass, Non Tender, Soft, Distended (mild violaceous periumbilical erythema unchanged without induration or pain) Results/Procedures Lab Laboratory Tests 03/17/17 06:00 Assessment/Plan Assessment and Plan Assess & Plan/Chief Complaint 1. Small bowel obstruction with secondary ischemia requiring resection postop day 4 patient doing well with resolving ileus. Diet is being advanced we'll continue to monitor.. 2. Mild blood pressure elevation Benazepril has been resumed. Patient on low- dose hydralazine with likely discontinuance in the near future.. 3. Mild hypokalemia resolved with IV replacement K+ up to 3.7. . ADI SUMMERS MD Mar 17, 2017 08:38
[2017-03-17] MEDS: hydrALAZINE (APRESOLINE) 25 MG TAB PO SCH ×3 (09:46→20:44)
[2017-03-17] MEDS: PANTOPRAZOLE 40 MG/10 ML (PROTONIX) VIAL IV SCH (09:46)
[2017-03-17] MEDS: buPROPion SR 150 MG (WELLBUTRIN SR) TAB PO SCH (09:46)
[2017-03-17] MEDS: BENAZEPRIL 20 MG (LOTENSIN) TAB PO SCH (09:46)
--- NOTE | 2017-03-17 12:30 | Progress Note-Standard ---
Standard Progress Note Progress Notes/Assess & Plan Date Seen by Provider: Mar 17, 2017 Time Seen by Provider: 11:32 Progress/Assessment & Plan uneventful postoperative night. Slight hypokalemia, being addressed. Incision dry. We will start TPN today and transferred to the regular nursing floor. continues to improve. Has not passed flatus. Erythema along the inferior aspect of the incision with no tenderness. Will continue TPN and await bowel function. Hypokalemia, being addressed. Unchanged, no new concerns. Await resumption of bowel function passed flatus and has had bowel movements. Slight erythema around the inferior aspect of the wound unchanged. Nasogastric tube removed this morning. Will advance diet and discontinue TPN Final Diagnosis small bowel obstruction, resection completed improving. TRUPTI COLEMAN MD Mar 17, 2017 12:30 pm
[2017-03-17] MEDS: ENOXAPARIN 40 MG/0.4 ML (LOVENOX) SYR SC SCH (14:15)
[2017-03-18] MEDS: METOCLOPRAMIDE INJ 10 MG/2 ML (REGLAN) IVP SCH (05:30)
[2017-03-18 06:04] LABS: BASOPHILS # (AUTO) 0.1 10^3/uL (0.0-0.1); BASOPHILS % (AUTO) 1 % (0-10); EOSINOPHILS # (AUTO) 0.5 10^3/uL (0.0-0.3); EOSINOPHILS % (AUTO) 6 % (0-10); LYMPHOCYTES # (AUTO) 1.1 X 10^3 (1.0-4.0); LYMPHOCYTES % (AUTO) 13 % (12-44); MEAN CORPUSCULAR HEMOGLOBIN 32 PG (25-34); MEAN CORPUSCULAR HGB CONC 34 G/DL (32-36); MEAN CORPUSCULAR VOLUME 92 FL (80-99); MEAN PLATELET VOLUME 10.1 FL (7.4-10.4); MONOCYTES # (AUTO) 1.1 X 10^3 (0.0-1.0); MONOCYTES % (AUTO) 13 % (0-12); NEUTROPHILS % (AUTO) 68 % (42-75); PLATELET COUNT 231 10^3/uL (130-400); RED BLOOD COUNT 3.71 10^6/uL (4.35-5.85); WHITE BLOOD COUNT 8.8 10^3/uL (4.3-11.0)
[2017-03-18 06:20] LABS: ANION GAP 8 MMOL/L (5-14); BLOOD UREA NITROGEN 18 MG/DL (7-18); BUN/CREATININE RATIO 24; CALCIUM 8.4 MG/DL (8.5-10.1); CARBON DIOXIDE 23 MMOL/L (21-32); CHLORIDE 103 MMOL/L (98-107); CREATININE SERUM 0.76 MG/DL (0.60-1.30); GFR ESTIMATED > 60; GLUCOSE 92 MG/DL (70-105); SODIUM 134 MMOL/L (135-145)
[2017-03-18] MEDS ORDERED: HYDR-3820 PO (07:41)
--- NOTE | 2017-03-18 07:43 | Discharge Inst-Simple/Standard ---
Discharge Inst-Standard Discharge Medications New, Converted or Re-Newed RX: RX on Chart Patient Instructions/Follow Up Plan of Care/Instructions/FU: f/U IN 10 DAYS Activity as Tolerated: No Goal: nO LIFTING OVER 20 LB Discharge Diet: No Restrictions, Soft Diet Planned Outpatient Orders/Ref. Pneu Vac Indicated: Yes TRUPTI COLEMAN MD Mar 18, 2017 7:43 am
[2017-03-18] MEDS: PANTOPRAZOLE 40 MG/10 ML (PROTONIX) VIAL IV SCH (07:54)
[2017-03-18 08:00] VITALS: BP 137/63
[2017-03-18] MEDS: hydrALAZINE (APRESOLINE) 25 MG TAB PO SCH (08:10)
[2017-03-18] MEDS: BENAZEPRIL 20 MG (LOTENSIN) TAB PO SCH (08:10)
[2017-03-18] MEDS: buPROPion SR 150 MG (WELLBUTRIN SR) TAB PO SCH (08:10)
[2017-03-18 08:35] VITALS: BP 137/63
--- NOTE | 2017-03-18 08:46 | Discharge Summary-Hospitalist ---
Diagnosis/Chief Complaint Date of Admission Mar 10, 2017 at 09:22 Date of Discharge Discharge Date: Mar 18, 2017 Discharge Time: 09:00 Admission Diagnosis 1. Ileus with or without ischemia aggravated by dehydration versus caruncle small bowel obstruction. We'll continue NG tube decompression and monitoring. Antibiotics have been initiated as well. Dr. VALLADARES's help greatly appreciated. 2. History of hypertension we'll be holding oral antihypertensive medication. Discharge Diagnosis 1. Small bowel obstruction with secondary ischemia requiring resection postop day 4 patient doing well with resolving ileus. Diet is being advanced we'll continue to monitor.. 2. Mild blood pressure elevation Benazepril has been resumed. Patient on low- dose hydralazine with likely discontinuance in the near future.. 3. Mild hypokalemia resolved with IV replacement K+ up to 3.7. . Discharge Summary Discharge Physical Examination Allergies: Coded Allergies: piperacillin (Verified Allergy, Mild, RASH, 03/12/17) tazobactam (Verified Allergy, Mild, RASH, 03/12/17) Vitals & I&Os Vital Signs Date Time Temp Pulse Resp B/P (MAP) Pulse Ox O2 Delivery O2 Flow Rate FiO2 03/17/17 23:47 99.4 77 18 137/67 95 Room Air Hospital Course Labs (last 24 hrs) Laboratory Tests 03/18/17 05:47: White Blood Count 8.8, Red Blood Count 3.71L, Hemoglobin 11.7L, Hematocrit 34L, Mean Corpuscular Volume 92, Mean Corpuscular Hemoglobin 32, Mean Corpuscular Hemoglobin Concent 34, Red Cell Distribution Width 13.0, Platelet Count 231, Mean Platelet Volume 10.1, Neutrophils (%) (Auto) 68, Lymphocytes (%) (Auto) 13 , Monocytes (%) (Auto) 13H, Eosinophils (%) (Auto) 6, Basophils (%) (Auto) 1, Neutrophils # (Auto) 6.0, Lymphocytes # (Auto) 1.1, Monocytes # (Auto) 1.1H, Eosinophils # (Auto) 0.5H, Basophils # (Auto) 0.1, Sodium Level 134L, Potassium Level 4.0, Chloride Level 103, Carbon Dioxide Level 23, Anion Gap 8, Blood Urea Nitrogen 18, Creatinine 0.76, Estimat Glomerular Filtration Rate > 60, BUN/ Creatinine Ratio 24, Glucose Level 92, Calcium Level 8.4L Microbiology 03/13/17 MRSA Screen - Final, Complete MRSA not isolated Pending Labs Laboratory Tests 03/18/17 05:47: White Blood Count 8.8, Red Blood Count 3.71, Hemoglobin 11.7, Hematocrit 34, Mean Corpuscular Volume 92, Mean Corpuscular Hemoglobin 32, Mean Corpuscular Hemoglobin Concent 34, Red Cell Distribution Width 13.0, Platelet Count 231, Mean Platelet Volume 10.1, Neutrophils (%) (Auto) 68, Lymphocytes (%) (Auto) 13 , Monocytes (%) (Auto) 13, Eosinophils (%) (Auto) 6, Basophils (%) (Auto) 1, Neutrophils # (Auto) 6.0, Lymphocytes # (Auto) 1.1, Monocytes # (Auto) 1.1, Eosinophils # (Auto) 0.5, Basophils # (Auto) 0.1, Sodium Level 134, Potassium Level 4.0, Chloride Level 103, Carbon Dioxide Level 23, Anion Gap 8, Blood Urea Nitrogen 18, Creatinine 0.76, Estimat Glomerular Filtration Rate > 60, BUN/ Creatinine Ratio 24, Glucose Level 92, Calcium Level 8.4 Discharge Home Medications: Active Scripts Active Hydrocodon-Acetaminophn 10-325 (Hydrocodone/Acetaminophen) 1 Each Tablet 1 Tab PO Q4H PRN Reported Docusate Sodium 100 Mg Capsule 100 Mg PO DAILY PRN Cialis (Tadalafil) 5 Mg Tablet 5 Mg PO DAILY Doxycycline Hyclate 100 Mg Tablet 100 Mg PO BID FILLED 02/18/17 #60 FOR A 30 DAY THERAPY Bupropion Xl (Bupropion HCl) 150 Mg Tab.er.24h 150 Mg PO DAILY Benazepril HCl 20 Mg Tablet 20 Mg PO DAILY Instructions to patient/family Please see electonic discharge instructions given to patient. Clinical Quality Measures DVT/VTE Risk/Contraindication: Risk Factor Score Per Nursin RFS Level Per Nursing on Admit: 2=Moderate Copy Copies To 1: ADI SUMMERS MD Copies To 2: PATRIC TIPTON MD, MARK D MD Mar 18, 2017 08:46
--- NOTE | 2017-03-18 11:24 | DISCHARGE SUMMARY ---
DATE OF ADMISSION: 03/10/2017. DATE OF DISCHARGE: 03/18/2017. DIAGNOSIS: Small bowel obstruction. OPERATION: Laparotomy with small bowel resection on 03/13/2017. This gentleman was admitted with small bowel obstruction, subsequently found to be due to a band causing closed loop, complete obstruction. This was managed by resection. He has since made a reasonable recovery. At the time of discharge, he is ambulating independently and has resumed bowel function. There is erythema along the inferior aspect of the wound which is unchanged. I have instructed him to contact me, should there be any concerns prior to his scheduled follow-up appointment. Job ID: [id number] Dictated Date: 03/18/2017 07:42:52 Photo Optics Technician Date: 03/18/2017 11:22:00/vianca RODAS
== END 2017-03-18 08:35 | disposition home or self-care (01) | DRG 331 ==
LOC: EDUNIT# 06:33 → ER 06:36 → 4TH 09:22 → ICU 03-13 12:11 → 4TH 03-14 14:00
PROVIDERS: ADMIT Internal Medicine; ATTEND Surgery
PROC: 0DBB0ZZ Excision of Ileum, Open Approach (ICD-10-PCS; principal; 2017-03-13 11:05)
DX: K56.60 Unspecified intestinal obstruction (principal); E87.6 Hypokalemia; I10 Essential (primary) hypertension
CPT/HCPCS: 36415; 71010; 71020; 74020; 74177; 76705; 80048; 80053; 81000; 82150; 83690; 83735; 84100; 84134; 84478; 85025; 85027; 87081; 88307; 94664; 96361; 96374; 96375; 96376

== ENCOUNTER 2017-08-14 18:40 | Emergency (ER) | payer BC, MEDICARE ==
[~2017-08-14] VITALS: Ht 185.4 cm; Wt 102.1 kg
[~2017-08-14 18:40] MED LIST: BENA20TA2 PO; BUPR150T7 PO; DOCU100C37 PO; DOXY100T2 PO; HYDR-3820 PO; TADA5TAB2 PO
--- OUTSIDE RECORDS SUMMARY | 2017-08-14 18:45 | XMS REPORT | Continuity of Care Document ---
Author Author [facility] Address Unknown Phone Unavailable Allergies There is no data. Medications There is no data. Problems Date Dx Coded Attending Type Code Diagnosis Diagnosed By 08/14/2013 JANAE LIND DO V04.81 FLU SHOT Procedures There is no data. Results There is no data. Encounters ACCT No. Visit Date/Time Discharge Status Pt. Type Provider Facility Loc./Unit Complaint [id number] 08/14/2013 16:01:00 08/14/2013 23:59:59 CLS Outpatient JANAE LIND DO
--- NOTE | 2017-08-14 21:34 | ED Back Pain ---
General Chief Complaint: Back Problems Stated Complaint: BACK PAIN Nursing Triage Note: PT REPORTS LOW BACK PAIN RADIATING DOWN HIS RIGHT LEG. HE STATES HE HAS BEEN TX FOR THIS PREVIOUSLY, HE JUST COMPLETED A ROUND OF PREDNISONE PER PCP. HE STATES HE WENT TO PHYSICAL THERAPY WEDNESDAY, AND PAIN IS WORSE SINCE. Nursing Sepsis Screen: No Definite Risk Source of Information: Patient Exam Limitations: No Limitations History of Present Illness Time Seen by Provider: 21:33 Allergies and Home Medications Allergies Coded Allergies: piperacillin (Verified Allergy, Mild, RASH, 03/12/17) tazobactam (Verified Allergy, Mild, RASH, 03/12/17) Home Medications Benazepril HCl 20 Mg Tablet, 20 MG PO DAILY, (Reported) Bupropion HCl 150 Mg Tab.er.24h, 150 MG PO DAILY, (Reported) Docusate Sodium 100 Mg Capsule, 100 MG PO DAILY PRN for CONSTIPATION-1ST LINE, ( Reported) Doxycycline Hyclate 100 Mg Tablet, 100 MG PO BID, (Reported) FILLED 02/18/17 #60 FOR A 30 DAY THERAPY Hydrocodone/Acetaminophen 1 Each Tablet, 1 TAB PO Q4H PRN for PAIN-MILD TO MODERATE, #30 Ref 0 Prescribed by: TRUPTI COLEMAN on 03/18/17 0741 Tadalafil 5 Mg Tablet, 5 MG PO DAILY, (Reported) Past Aluvswp-Kcvswt-Meltvp Hx Patient Social History Alcohol Use: Denies Use Recreational Drug Use: No Smoking Status: Never a Smoker 2nd Hand Smoke Exposure: No Recent Foreign Travel: No Contact w/Someone Who Travel: No Recent Infectious Disease Expo: No Recent Hopitalizations: No Immunizations Up To Date Date of Pneumonia Vaccine: Apr 16, 2009 Date of Influenza Vaccine: Jun 16, 2012 Seasonal Allergies Seasonal Allergies: No Surgeries History of Surgeries: Yes Surgeries: Adenoidectomy, Tonsillectomy Respiratory History of Respiratory Disorde: No Cardiovascular History of Cardiac Disorders: No Neurological History of Neurological Disord: No Genitourinary History of Genitourinary Disor: Yes Genitourinary Disorders: Kidney Stones Gastrointestinal History of Gastrointestinal Di: No Musculoskeletal History of Musculoskeletal Dis: No Endocrine History of Endocrine Disorders: No HEENT History of HEENT Disorders: No Cancer History of Cancer: No Psychosocial History of Psychiatric Problem: No Integumentary History of Skin or Integumenta: Yes (ROSEACIA) Family Medical History Significant Family History: No Pertinent Family Hx Physical Exam Vital Signs Vital Sign - Last 12Hours 08/14/17 19:45 Temp 97.2 Pulse 74 Resp 16 B/P (MAP) 133/86 (102) Pulse Ox 99 O2 Delivery Room Air Capillary Refill : Less Than 3 Seconds Progress/Results/Core Measures Results/Orders Vital Signs/I&O Vital Sign - Last 12Hours 08/14/17 19:45 Temp 97.2 Pulse 74 Resp 16 B/P (MAP) 133/86 (102) Pulse Ox 99 O2 Delivery Room Air Blood Pressure Mean: 102 Departure Impression Impression: Primary Impression: Lumbar radiculopathy Disposition: HOME, SELF-CARE Condition: Improved Departure-Patient Inst. Decision time for Depature: 21:46 Referrals: ADI SUMMERS MD (PCP/Family) Primary Care Physician Patient Instructions: Radiculopathy (DC) Add. Discharge Instructions: All discharge instructions reviewed with patient and/or family. Voiced understanding. Medications as instructed. Tylenol extra strength [id number] as directed for pain. No lifting, pushing, pulling, twisting, bending, climbing 7-10 days. Follow-up with Dr. Summers as an outpatient this week for recheck and scheduling outpatient MRI of the low back. Call for appointment time to see morning. Return the emergency department immediately for worsened pain, numbness, weakness, bowel incontinence, bladder incontinence, or any other concerns. Scripts Meloxicam (Meloxicam) 15 Mg Tablet 15 MG PO DAILY, #20 TAB 0 Refills Prov: ARTURO IVORY 08/14/17 Prednisone (Prednisone) 20 Mg Tab 40 MG PO DAILY, #10 TAB 0 Refills Prov: ARTURO IVORY 08/14/17 Gabapentin (Gabapentin) 300 Mg Capsule 300 MG PO UD, #30 CAP 0 Refills 1 cap po daily x1d, then 1 cap po bid x1d, then 1 cap po tid Prov: ARTURO IVORY 08/14/17 Orphenadrine Citrate (Orphenadrine Citrate) 100 Mg Tablet.er 100 MG PO BID Y for SPASMS, #10 TAB 0 Refills Prov: ARTURO IVORY 08/14/17 ARTURO IVORY Aug 14, 2017 21:33
[2017-08-14] MEDS ORDERED: KETOROLAC 60 MG/2 ML VIAL IM STA (21:43)
[2017-08-14] MEDS ORDERED: ORPHENADRINE 60 MG/2 ML (NORFLEX) AMP IM STA (21:43)
[2017-08-14] MEDS ORDERED: DEXAMETHASONE PF 10 MG/ML (DECADRON) VIAL IM STA (21:43)
[2017-08-14] MEDS ORDERED: RX-HYDROCODONE/APAP 5/325 MG #4 TAB PK PO PRN (21:45)
[2017-08-14] MEDS ORDERED: DEXAMETHASONE 10 MG/ML (DECADRON) 1 ML VIAL ONE (21:47)
[2017-08-14] MEDS ORDERED: MELO15TA39 PO (21:50)
[2017-08-14] MEDS ORDERED: GABA-488 PO (21:50)
[2017-08-14] MEDS ORDERED: PRD20T PO (21:50)
[2017-08-14] MEDS ORDERED: ORPH100T PO (21:50)
[2017-08-14 22:11] VITALS: BP 133/86
[2017-08-14] MEDS ORDERED: TRAM50TA2 PO (22:11)
== END 2017-08-14 22:10 | disposition home or self-care (01) ==
LOC: EDUNIT# 18:40 → ER 18:41
DX: M54.16 Radiculopathy, lumbar region (principal); Z90.89 Acquired absence of other organs; Z87.442 Personal history of urinary calculi
CPT/HCPCS: 99284

== ENCOUNTER 2022-11-12 05:35 | Outpatient (CLI) | payer MEDICARE, OTHER ==
[~2022-11-12] VITALS: Ht 185.4 cm; Wt 105.4 kg
[~2022-11-12 05:35] MED LIST changes: +ACHYD1T PO; +BENA-3 PO; -BENA20TA2 PO; +BUPR150T24 PO; -BUPR150T7 PO; +GABA-488 PO; -HYDR-3820 PO; +MELO15TA39 PO; +ORPH100T PO; +PRD20T PO; +TRM50T PO
[2022-11-12] MEDS ORDERED: LATA7.5D OP (14:12)
== END 2022-11-12 14:48 | disposition home or self-care (01) ==
LOC: PREOP 05:35
PROVIDERS: ATTEND Surgery
DX: Z01.818 Encounter for other preprocedural examination (principal)

== ENCOUNTER 2022-11-19 10:00 | Day surgery (SDC) | payer MEDICARE, OTHER ==
[2022-11-19] VITALS (9 sets, daily range): BP systolic 138–171; BP diastolic 77–91
[~2022-11-19] VITALS: Ht 185.5 cm; Wt 104.0 kg
[~2022-11-19 10:00] MED LIST changes: +LATA7.5D OP
[2022-11-19] MEDS ORDERED: ONDANSETRON 4 MG/2 ML (SDV) Z0FRAN ONE (10:19)
[2022-11-19] MEDS ORDERED: proPOfol 200 MG/20 ML (DIPRIVAN) VIAL IV ONE (10:19)
[2022-11-19] MEDS ORDERED: SEVOFLURANE (ULTANE) 15 ML INHAL SOLN ONE ×2 (10:19→12:36)
[2022-11-19] MEDS ORDERED: MIDAZOLAM 2 MG/2 ML (VERSED) VIAL ONE (10:19)
[2022-11-19] MEDS ORDERED: fentaNYL INJ 100 MCG/2 ML AMP ONE (10:19)
[2022-11-19] MEDS ORDERED: LIDOCAINE PF 2% 5 ML (XYLOCAINE) VIAL ONE (10:19)
[2022-11-19] MEDS ORDERED: ROCURONIUM 50 MG/5 ML (ZEMURON) VIAL IV ONE (10:20)
[2022-11-19] MEDS ORDERED: BUP/EPI 0.5% 1:200,000 (SENSORCAINE) 30 ML VIAL ONE (10:24)
--- NOTE | 2022-11-19 10:24 | Progress Note-Pre Operative ---
Pre-Operative Progress Note Date H&P Reviewed: Nov 19, 2022 Time H&P Reviewed: 10:20 History & Physical: H&P Reviewed, Patient Examed, No changes noted Pre-Operative Diagnosis: Incisional hernia x2 and umbilical hernia CAIO ANN JR. SYSTEMS ADMINISTRATOR Nov 19, 2022 10:24
[2022-11-19] MEDS ORDERED: HYDR-3817 PO (10:26)
--- NOTE | 2022-11-19 10:26 | Discharge Inst-Surgical ---
D/C Lap Instructions-KIDO Reconcile Patient Problems Problems Reviewed?: Yes New, Converted, or Re-Newed RX: RX on Chart Follow Up Appt in 2 weeks Activity as tolerated No driving for 24 hours No driving while on pain medications Incentive Spirometry use every 2 hours while awake Regular Diet Symptoms to Report: Fever over 101 degree F, Nausea/Vomiting Infection Signs and Symptoms to report: Increased redness, Foul odor of wound, Increased drainage Bathing instructions: May shower Operative Area Clean/Dry; Keep incision clean/dry If any problems/questions: Contact your physician or go to Emergency Room CAIO ANN APRN Nov 19, 2022 10:26
[2022-11-19] MEDS ORDERED: HYDROcodone/APAP 5 MG/325 MG (LORTAB) TAB PO ONE (10:30)
[2022-11-19] MEDS ORDERED: ACETAMINOPHEN 325 MG TABLET PO PRN (10:30)
[2022-11-19] MEDS ORDERED: ONDANSETRON 4 MG/2 ML (SDV) Z0FRAN IVP PRN ×2 (10:30→12:45)
[2022-11-19] MEDS ORDERED: morphine INJ 10 MG/ML 1ML (SYR OR VIAL) IVP PRN (10:30)
[2022-11-19] MEDS ORDERED: LACTATED RINGERS 1,000 ML IV PRN (10:45)
[2022-11-19] MEDS ORDERED: ceFAZolin INJECTION 2,000 MG in NS (IVPB) 50 ML IV ONE (10:45)
[2022-11-19] MEDS ORDERED: ceFAZolin INJECTION 2,000 MG ONE (10:55)
[2022-11-19] MEDS ORDERED: NS (IVPB) 50 ML ONE (10:55)
[2022-11-19] MEDS ORDERED: NEOSTIGMINE (BLOXIVERZ ) 1 MG/1ML 10 ML VIAL ONE (11:59)
[2022-11-19] MEDS ORDERED: GLYCOPYRROLATE 0.2 MG/ML (ROBINUL) 2 ML VIAL ONE (11:59)
[2022-11-19] MEDS ORDERED: KETOROLAC 30 MG/ML VIAL ONE (12:16)
--- NOTE | 2022-11-19 12:34 | Progress Note-Post Operative ---
Post-Operative Progess Note Surgeon (s)/Air/Ocean Export Clerk (s) Surgeon ISIDRO VALLADARES MD Air/Ocean Export Clerk: brook ashley QA TESTER Pre-Operative Diagnosis Incisional hernia x2 and umbilical hernia Post-Operative Diagnosis same Procedure & Operative Findings Date of Procedure 11/19/22 Procedure Performed/Findings open ventral abdominal incisional hernia repair with mesh x2, umbilical hernia repair with mesh. Anesthesia Type get Estimated Blood Loss Estimated blood loss (mL): minimal Specimens/Packing Specimens Removed none ISIDRO VALLADARES MD Nov 19, 2022 12:34
--- NOTE | 2022-11-19 12:44 | Anesthesia-General Post-Op ---
General Patient Condition Mental Status/LOC: Same as Preop Cardiovascular: Satisfactory Nausea/Vomiting: Absent Respiratory: Satisfactory Pain: Controlled Complications: Absent Post Op Complications Complications None Follow Up Care/Instructions Patient Instructions None needed. Anesthesia/Patient Condition Patient Condition Patient is doing well, no complaints, stable vital signs, no apparent adverse anesthesia problems. No complications reported per nursing. D/C home per [facility] Criteria: Yes JENNIFER HUDSON CRNA Nov 19, 2022 12:44
[2022-11-19] MEDS ORDERED: HYDROmorphone 2 MG/ML VIAL (DILAUDID) IV ONE (12:45)
[2022-11-19] MEDS ORDERED: HYDROcodone/APAP 5 MG/325 MG (LORTAB) TAB ONE (13:41)
--- NOTE | 2022-11-19 19:52 | OPERATIVE REPORT ---
DATE OF SERVICE: 11/19/2022 ATTENDING PRIMARY CARE PHYSICIAN: Saeid Iverson MD PREOPERATIVE DIAGNOSIS: Symptomatic reducible ventral abdominal incisional hernia repair x2, umbilical hernia. POSTOPERATIVE DIAGNOSIS: Symptomatic reducible ventral abdominal incisional hernia repair x2, umbilical hernia. PROCEDURE: Ventral abdominal incisional hernia repair with mesh x2, umbilical hernia repair with mesh. SURGEON: Isidro Valladares MD DECK SUPERVISOR: Lucian Ca APRN ANESTHESIA: General endotracheal. ESTIMATED BLOOD LOSS: Minimal. FINDINGS: Symptomatic reducible ventral abdominal incisional hernia repair x2, umbilical hernia. DISPOSITION: The patient tolerated the procedure well. INDICATIONS: The patient is a 72-year-old male referred over to us for symptomatic hernias. He reports that he underwent a midline laparotomy incision in 2017 for small-bowel obstruction requiring a small bowel resection. He reports that shortly after he did develop an outpouching to the right of midline of the incision and eventually to the left of the umbilicus. He also did state that he has had a defect in the umbilical region from many years; however, this has grown larger in size and become symptomatic as well. He was found to have 2 separate reducible incisional hernias as well as a small umbilical hernia, all reducible. He is otherwise eating well and having normal bowel movements. DESCRIPTION OF PROCEDURE: The patient was brought to the operating room, laid supine on the table. After adequate IV pain and sedative medications and general endotracheal intubation, the abdomen was prepped and draped in standard surgical fashion. A 0.5% Marcaine with epinephrine was then used to anesthetize the overlying skin along the previous midline incision site. A skin incision above the umbilicus and then curving to the left of the umbilicus was then made using #15 blade. Subcutaneous tissue was then dissected using electrocautery. We first proceeded with a full dissection of the right lateral ventral abdominal incisional hernia using blunt dissection as well as electrocautery. We dissected to the fascial base. This defect was approximately 3 cm in largest diameter. The hernia sac was then opened using Metzenbaum scissors. There was only omentum within the hernia sac and the hernia sac was then fully excised under direct visualization using electrocautery. We then proceeded with dissection of the left lateral incisional hernia in a similar manner using blunt dissection as well as electrocautery. We dissected to the fascial base and then the hernia sac opened using electrocautery under direct visualization and fully excised. The umbilical hernia was small and less than 1 cm in size. A 15 x 10 cm coated polypropylene mesh was then placed into all 3 fascial defects, which at covered with a significant overlap as well. We then proceeded with transfascial sutures concentrically to the mesh using 0 Prolene sutures initially starting with the right lateral defect. The umbilical defect was then closed encompassing the mesh as well as a direct primary closure using 0 Prolene sutures at the underside opening. Good hemostasis was observed. We then proceeded with a repair of the left lateral defect in a similar manner. We sutured the mesh transfascially using 0 Prolene interrupted sutures in a concentric manner with visualization of good hemostasis. Good hemostasis was observed and the subcutaneous tissue was reapproximated using 3-0 Vicryl interrupted sutures. Skin was closed using 4-0 Monocryl running subcuticular suture. Wound was then cleaned and covered with Dermabond, followed by tonsil sponges followed by 4 x 4 gauze followed by large Op-Site and abdominal binder. The patient tolerated the procedure well. We will start IV normal pain medication as well as a clear liquid diet. Once he is tolerating clears, has good pain control with oral pain medications, ambulating well, we will discharge him home where he will be instructed to do no heavy lifting or exertion for the next 2 weeks and to continue to wear the abdominal binder for the same time length, both day and night. Job ID: [id number] DocumentID: [id number] Dictated Date: 11/19/2022 12:49:01 Campus Administrative Assistant Date: 11/19/2022 19:50:00 Dictated By: ISIDRO VALLADARES MD
== END 2022-11-19 14:30 | disposition home or self-care (01) ==
LOC: SDC 10:00
PROVIDERS: ATTEND Surgery
DX: K43.2 Incisional hernia without obstruction or gangrene (principal); K42.9 Umbilical hernia without obstruction or gangrene; E66.9 Obesity, unspecified; Z68.30 Body mass index [BMI] 30.0-30.9, adult; Z87.891 Personal history of nicotine dependence
CPT/HCPCS: 49593; 87081; 94664; C1781